=== PATIENT | female | born 1985 | race Caucasian/White ===

== ENCOUNTER 2016-08-18 19:05 | Emergency (ER) | payer BC ==
[~2016-08-18] VITALS: Ht 160 cm; Wt 67.6 kg
[~2016-08-18 19:05] MED LIST: AZIT250T PO; CYCL-375 PO; DICL75TA5 PO; FLUO10CA21 PO; NORG1TAB19 PO; ONDA4TAB7 PO; OXYC1TAB8 PO; PROGESTERONE PO
[2016-08-18 19:08] VITALS: Ht 160 cm; Wt 67.6 kg
--- OUTSIDE RECORDS SUMMARY | 2016-08-18 19:08 | XMS REPORT | Referral Summary ---
Author Author [facility] Organization [facility] Address Unknown Phone Unavailable Care Team Providers Care Investigative Research Specialist Name Role Phone Hayes Beverly Primary Care Physician [phone] Encounter VC Date(s): 07/02/15 - 07/02/15 [facility], [address] [place] [address] Discharge Diagnosis: Menorrhagia Discharge Diagnosis: Major depressive disorder, single episode Discharge Disposition: 01-Home or Self Care Attending Physician: Kika Chauhan APRN Admitting Physician: Kika Chauhan APRN Vital Signs Most recent to 1 oldest [Reference Range]: Temperature Tympanic 36.7 degC [36.6-38.1 degC] (07/02/15 3:15 PM) Peripheral Pulse 68 bpm Rate [60-100 bpm] (07/02/15 3:15 PM) Blood Pressure 104/64 mmHg [90-140/60-90 mmHg] (07/02/15 3:15 PM) Problem List Condition Effective Dates Status Health Status Informant Acute Active bronchitis(Confirmed ) Acute Active gastroenteritis(Conf irmed) Dehydration(Confirme Active d) History of Active anemia(Confirmed) Liver Active mass(Confirmed) Asthma(Confirmed) Resolved (Confirmed) 06/16/03 - 2004 Resolved (Confirmed) 06/15/09 - 2010 Resolved (Confirmed) 06/15/06 - 2007 Resolved Abdominal pain, Active RUQ(Confirmed) Abnormal abdominal Active ultrasound(Confirmed ) Allergies, Adverse Reactions, Alerts Substance Reaction Severity Status penicillin rash all over Active sulfa drugs Active sulfanilamide topical Active Medications albuterol 1.25 mg/3 mL (0.042%) inhalation solution 3 mL, NEB, QID, as needed for cough and wheezing, 0 Refill(s) Start Date: 06/13/14 Status: Ordered Crutches (DME) DME Item GABRIELLA: 6 weeks Dx: R foot sx Use as directed, See Instructions, # 1 Each, 0 Refill(s), Supply Start Date: 05/28/15 Status: Ordered Flonase sprays, Nasal, Daily, 0 Refill(s) Start Date: 10/07/14 Status: Ordered Miscellaneous DME DME Item Knee/Leg walker GABRIELLA: 6 weeks Dx: R foot sx Use as directed, See Instructions, # 1 Each, 0 Refill(s), Supply Start Date: 05/28/15 Status: Ordered ProAir HFA 90 mcg/inh inhalation aerosol 2 puffs, Inhalation, QID, as needed for wheezing, # 18 g, 11 Refill(s), Pharmacy : [facility] Start Date: 06/13/14 Status: Ordered Provera 10 mg oral tablet See Instructions, 1 TABS ORAL DAILY, FOR THE FIRST 14 DAYS OF EACH BCP PACK., # 14 Each, 1 Refill(s), Pharmacy: [facility], 1 TABS ORAL DAILY, FOR THE FIRST 14 DAYS OF EACH BCP PACK. Start Date: 07/02/15 Status: Ordered Tri-Sprintec oral tablet 1 tabs, Oral, Daily, # 28 tabs, 11 Refill(s), Pharmacy: [facility] Start Date: 11/07/14 Status: Ordered Wellbutrin SR 100 mg/12 hours oral tablet, extended release 100 mg 1 tabs, Oral, BID, take once a day for 3-7 days then inc to BID, # 60 tabs, 1 Refill(s), Pharmacy: [facility] [id number], 1 tabs Oral BID,Instr: take once a day for 3-7 days then inc to BID Start Date: 07/02/15 Status: Ordered ZyrTEC 5 mg, Oral, Daily, as needed for allergy symptoms, 0 Refill(s) Start Date: 06/13/14 Status: Ordered Results No data available for this section Immunizations Vaccine Date Refusal Reason hepatitis B pediatric vaccine 04/30/98 hepatitis B pediatric vaccine 02/06/98 hepatitis B pediatric vaccine 10/17/97 pneumococcal 23-polyvalent vaccine 06/16/04 tetanus-diphth toxoids (Td) adult/adol 10/17/97 Procedures Procedure Date Related Diagnosis Body Site Bunionectomy 2000 Surgical removal of wisdom tooth 1999 Social History Social History Type Response Smoking Status Never smoker Assessment and Plan Extracted from: Title: Office Visit Author: Kika Chauhan APRN Date: 07/02/15 Note-depression/menorragia Assessment/Plan Major depressive disorder, single episode Start Yozbafmpah149 mg twice a day. Discussed starting daily for 3-7 days. Increase to twice a day to decrease side effects. Side effects of medication reviewed. Discussed with her optimal treatment for depression as 9-12 months at the least. Discussed all stopping medications abruptly. Encourage her to continue to follow with therapist. That is a good positive step. Follow-up with Dr. Beverly in 1-2 months. Menorrhagia Restart the Provera. Encouraged her to schedule well woman exam with Dr. Beverly in the next 1-2 months. Orders: buPROPion, 100 mg 1 tabs, Oral, BID, take once a day for 3-7 days then inc to BID, # 60 tabs, 1 Refill(s), Pharmacy: [facility] [id number], 1 tabs Oral BID,Instr:take once a day for 3-7 days then inc to BID medroxyPROGESTERone, See Instructions, 1 TABS ORAL DAILY, FOR THE FIRST 14 DAYS OF EACH BCP PACK., # 14 Each, 1 Refill(s), Pharmacy: [facility] [id number], 1 TABS ORAL DAILY, FOR THE FIRST 14 DAYS OF EACH BCP PACK.
--- OUTSIDE RECORDS SUMMARY | 2016-08-18 19:08 | XMS REPORT | Referral Summary ---
Author Organization Unknown Address Unknown Phone Unavailable Care Team Providers Care Autocad Draftsman Name Role Phone Hayes Beverly Primary Care Physician [phone] Encounter VC Date(s): 07/04/14 - 07/04/14 [facility], [address] [place] [address] Discharge Diagnosis: Allergic rhinitis due to pollen Discharge Diagnosis: Asthma Discharge Disposition: Home or Self Care Attending Physician: Chapin Beverly MD Admitting Physician: Chapin Beverly MD Vital Signs Most recent to 1 oldest [Reference Range]: Temperature Tympanic 36.6 degC [36.6-38.1 degC] (07/04/14 9:44 AM) Peripheral Pulse 84 bpm Rate [60-100 bpm] (07/04/14 9:44 AM) Blood Pressure 114/70 mmHg [90-140/60-90 mmHg] (07/04/14 9:44 AM) Most recent to 1 oldest [Reference Range]: SpO2 100 % (07/04/14 9:44 AM) Problem List Condition Effective Dates Status Health Status Informant Acute Active bronchitis(Confirmed ) Acute Active gastroenteritis(Conf irmed) Asthma(Confirmed) Resolved Dehydration(Confirme Active d) Liver Active mass(Confirmed) Abdominal pain, Active RUQ(Confirmed) Abnormal abdominal Active ultrasound(Confirmed ) Allergies, Adverse Reactions, Alerts Substance Reaction Severity Status penicillin Active sulfanilamide topical Active Medications albuterol 1.25 mg/3 mL (0.042%) inhalation solution 3 mL, NEB, QID, as needed for cough and wheezing, 0 Refill(s) Start Date: 06/13/14 Status: Ordered Digna-D 24 Hour Allergy & Congestion 1 tabs, Oral, Daily, as needed for allergy symptoms, 0 Refill(s) Start Date: 06/13/14 Status: Ordered ProAir HFA 90 mcg/inh inhalation aerosol 2 puffs, Inhalation, QID, as needed for wheezing, # 18 g, 11 Refill(s), Pharmacy : [facility] [id number] Start Date: 06/13/14 Status: Ordered Symbicort 160 mcg-4.5 mcg/inh inhalation aerosol 2 puffs, Inhalation, BID, # 10.2 g, 11 Refill(s) Start Date: 06/13/14 Status: Ordered Tylenol Cold Multi-Symptom Daytime 2 tablets, Oral, q4hr, as needed for cold symptoms, 0 Refill(s) Start Date: 06/13/14 Status: Ordered Tylenol Regular Strength mg, Oral, q4hr, as needed for fever, 0 Refill(s) Start Date: 04/10/14 Status: Ordered Xopenex 1.25 mg/3 mL inhalation solution 3 mL, NEB, TID, # 72 Each, 2 Refill(s), Pharmacy: [facility] [id number], 3 mL NEB TID Start Date: 06/13/14 Status: Ordered ZyrTEC 5 mg, Oral, Daily, as needed for allergy symptoms, 0 Refill(s) Start Date: 06/13/14 Status: Ordered Results No data available for this section Immunizations No data available for this section Procedures No data available for this section Social History Social History Type Response Smoking Status Never smoker Assessment and Plan Extracted from: Title: Ambulatory Patient Education Author: Chapin Beverly MD Date: 07/04 Allergy Allergic Rhinitis Allergic rhinitis is when the mucous membranes in the nose respond to allergens. Allergens are particles in the air that cause your body to have an allergic reaction. This causes you to release allergic antibodies. Through a chain of events, these eventually cause you to release histamine into the blood stream. Although meant to protect the body, it is this release of histamine that causes your discomfort, such as frequent sneezing, congestion, and an itchy , runny nose. CAUSES Seasonal allergic rhinitis (hay fever ) is caused by pollen allergens that may come from grasses, trees, and weeds. Year-round allergic rhinitis (perennial allergic rhinitis ) is caused by allergens such as house dust mites, pet dander , and mold spores. SYMPTOMS Nasal stuffiness (congestion ). Itchy, runny nose with sneezing and tearing of the eyes. DIAGNOSIS Your health care provider can help you determine the allergen or allergens that trigger your symptoms. If you and your health care provider are unable to determine the allergen, skin or blood testing may be used. TREATMENT Allergic Rhinitis does not have a cure, but it can be controlled by: Medicines and allergy shots (immunotherapy ). Avoiding the allergen. Hay fever may often be treated with antihistamines in pill or nasal spray forms. Antihistamines block the effects of histamine. There are over-the- counter medicines that may help with nasal congestion and swelling around the eyes. Check with your health care provider before taking or giving this medicine. If avoiding the allergen or the medicine prescribed do not work, there are many new medicines your health care provider can prescribe. Stronger medicine may be used if initial measures are ineffective. Desensitizing injections can be used if medicine and avoidance does not work. Desensitization is when a patient is given ongoing shots until the body becomes less sensitive to the allergen. Make sure you follow up with your health care provider if problems continue. HOME CARE INSTRUCTIONS It is not possible to completely avoid allergens, but you can reduce your symptoms by taking steps to limit your exposure to them. It helps to know exactly what you are allergic to so that you can avoid your specific triggers. SEEK MEDICAL CARE IF: You have a fever. You develop a cough that does not stop easily (persistent ). You have shortness of breath. You start wheezing. Symptoms interfere with normal daily activities. Document Released: 12/01/2001 Document Revised: 12/27/2013 Document Reviewed: [facility] Patient Information 2014 [facility], [facility]. [facility] Medicine Asthma, Adult Asthma is a recurring condition in which the airways tighten and narrow. Asthma can make it difficult to breathe. It can cause coughing, wheezing, and shortness of breath. Asthma episodes (also called asthma attacks) range from minor to life-threatening. Asthma cannot be cured, but medicines and lifestyle changes can help control it. CAUSES Asthma is believed to be caused by inherited (genetic ) and environmental factors, but its exact cause is unknown. Asthma may be triggered by allergens, lung infections, or irritants in the air. Asthma triggers are different for each person. Common triggers include: Animal dander. Dust mites. Cockroaches. Pollen from trees or grass. Mold. Smoke. Air pollutants such as dust, household adapted physical education specialist, hair sprays, aerosol sprays, paint fumes, strong chemicals, or strong odors. Cold air, weather changes, and winds (which increase molds and pollens in the air). Strong emotional expressions such as crying or laughing hard. Stress. Certain medicines (such as aspirin) or types of drugs (such as beta- blockers). Sulfites in foods and drinks. Foods and drinks that may contain sulfites include dried fruit, potato chips, and sparkling grape juice. Infections or inflammatory conditions such as the flu, a cold, or an inflammation of the nasal membranes (rhinitis ). Gastroesophageal reflux disease (GERD). Exercise or strenuous activity. SYMPTOMS Symptoms may occur immediately after asthma is triggered or many hours later. Symptoms include: Wheezing. Excessive nighttime or manager laundry coughing. Frequent or severe coughing with a common cold. Chest tightness. Shortness of breath. DIAGNOSIS The diagnosis of asthma is made by a review of your medical history and a physical exam. Tests may also be performed. These may include: Lung function studies. These tests show how much air you breath in and out. Allergy tests. Imaging tests such as X-rays. TREATMENT Asthma cannot be cured, but it can usually be controlled. Treatment involves identifying and avoiding your asthma triggers. It also involves medicines. There are 2 classes of medicine used for asthma treatment: Controller medicines. These prevent asthma symptoms from occurring. They are usually taken every day. Reliever or rescue medicines. These quickly relieve asthma symptoms. They are used as needed and provide short-term relief. Your health care provider will help you create an asthma action plan. An asthma action plan is a written plan for managing and treating your asthma attacks. It includes a list of your asthma triggers and how they may be avoided. It also includes information on when medicines should be taken and when their dosage should be changed. An action plan may also involve the use of a device called a peak flow meter. A peak flow meter measures how well the lungs are working. It helps you monitor your condition. HOME CARE INSTRUCTIONS Take medicine as directed by your health care provider. Speak with your health care provider if you have questions about how or when to take the medicines. Use a peak flow meter as directed by your health care provider. Record and keep track of readings. Understand and use the action plan to help minimize or stop an asthma attack without needing to seek medical care. Control your home environment in the following ways to help prevent asthma attacks: Do not smoke. Avoid being exposed to secondhand smoke. Change your heating and air conditioning filter regularly. Limit your use of fireplaces and wood stoves. Get rid of pests (such as roaches and mice) and their droppings. Throw away plants if you see mold on them. Clean your floors and dust regularly. Use unscented cleaning products. Try to have someone else vacuum for you regularly. Stay out of rooms while they are being vacuumed and for a short while afterward. If you vacuum, use a dust mask from a hardware store, a double-layered or microfilter vacuum cleaner and presser bag, or a vacuum cleaner and presser with a HEPA filter. Replace carpet with wood, tile, or vinyl bill. Carpet can trap dander and dust. Use allergy-proof pillows, mattress covers, and box spring covers. Wash bed sheets and blankets every week in hot water and dry them in a dryer. Use blankets that are made of polyester or cotton. Clean bathrooms and soha with bleach. If possible, have someone repaint the wellington in these rooms with mold-resistant paint. Keep out of the rooms that are being cleaned and painted. Wash hands frequently. SEEK MEDICAL CARE IF: You have wheezing, shortness of breath, or a cough even if taking medicine to prevent attacks. The colored mucus you cough up (sputum ) is thicker than usual. Your sputum changes from clear or white to yellow, green, nieto, or bloody. You have any problems that may be related to the medicines you are taking ( such as a rash, itching, swelling, or trouble breathing). You are using a reliever medicine more than 23 times per week. Your peak flow is still at 5079% of you personal best after following your action plan for 1 hour. SEEK IMMEDIATE MEDICAL CARE IF: You seem to be getting worse and are unresponsive to treatment during an asthma attack. You are short of breath even at rest. You get short of breath when doing very little physical activity. You have difficulty eating, drinking, or talking due to asthma symptoms. You develop chest pain. You develop a fast heartbeat. You have a bluish color to your lips or fingernails. You are lightheaded, dizzy, or faint. Your peak flow is less than 50% of your personal best. You have a fever or persistent symptoms for more than 23 days. You have a fever and symptoms suddenly get worse. MAKE SURE YOU: Understand these instructions. Will watch your condition. Will get help right away if you are not doing well or get worse. Document Released: 03/08/2006 Document Revised: 11/08/2013 Document Reviewed: [employer] Patient Information 2014 [employer] [facility]. No follow up information was provided. Extracted from: Title: asthma Author: Chapin Beverly MD Date: 07/04/14 Impression and Plan Diagnosis Allergic rhinitis due to pollen (ICD9 477.0, Discharge, Medical). Asthma (ICD9 493.90, Discharge, Medical). Plan: Continue your current meds. Do peak flows daily. See [facility] for your physical this summer. Followup with me as needed. . Orders Orders (Selected) Outpatient Orders Ordered Office Visit Level 3 Est 19936: . Dx/Order Association Plan: Diagnosis: Allergic rhinitis due to pollen Comment: Ordered: Office Visit Level 3 Est 00219; 07/04/14 10:07:00 CDT, Asthma | Allergic rhinitis due to pollen Diagnosis: Asthma Comment: Ordered: Office Visit Level 3 Est 05158; 07/04/14 10:07:00 CDT, Asthma | Allergic rhinitis due to pollen End of Orders ."
--- OUTSIDE RECORDS SUMMARY | 2016-08-18 19:08 | XMS REPORT | Referral Summary ---
Author Author [facility] Organization [facility] Address Unknown Phone Unavailable Care Team Providers Care Banana Room Cutter Name Role Phone Hayes Beverly Primary Care Physician [phone] Encounter VC Date(s): 10/22/15 - 10/22/15 [facility] [address] [place] [address] [facility] Discharge Diagnosis: Vaginal discharge Discharge Diagnosis: Genital herpes Discharge Diagnosis: Possible exposure to STD Discharge Disposition: 01-Home or Self Care Attending Physician: Sarah Martin Attending Physician: Provider, Immediate Care Admitting Physician: Provider, Immediate Care Vital Signs Most recent to 1 oldest [Reference Range]: Temperature Oral 36.6 degC [35.8-37.3 degC] (10/22/15 7:39 AM) Peripheral Pulse 63 bpm Rate [60-100 bpm] (10/22/15 7:39 AM) Blood Pressure 114/65 mmHg [90-140/60-90 mmHg] (10/22/15 7:39 AM) SpO2 100 % (10/22/15 7:39 AM) Problem List Condition Effective Dates Status Health Status Informant Acute Resolved bronchitis(Confirmed ) Acute Resolved gastroenteritis(Conf irmed) Dehydration(Confirme Resolved d) History of Active anemia(Confirmed) Liver Active [...] 0 Refill(s) Start Date: 06/13/14 Status: Ordered azithromycin 500 mg oral tablet 1,000 mg 2 tabs, Oral, Daily, # 2 tabs, 0 Refill(s), Pharmacy: [id number], 2 tabs Oral Daily Start Date: 10/22/15 Stop Date: 10/24/15 Status: Ordered Flonase sprays, Nasal, Daily, 0 Refill(s) Start Date: 10/07/14 Status: Ordered naproxen 500 mg oral tablet 500 mg 1 tabs, Oral, BID, # 60 tabs, 0 Refill(s), Pharmacy: [id number], 1 tabs Oral BID Start Date: 08/09/15 Status: Ordered ProAir HFA 90 mcg/inh inhalation aerosol 2 puffs, Inhalation, QID, as needed for wheezing, # 18 g, 11 Refill(s), Pharmacy : [id number] Start Date: 06/13/14 Status: Ordered Provera 10 mg oral tablet See Instructions, 1 TABS ORAL DAILY, FOR THE FIRST 14 DAYS OF EACH BCP PACK., # 14 Each, 1 Refill(s), Pharmacy: [id number], 1 TABS ORAL DAILY, FOR THE FIRST 14 DAYS OF EACH BCP PACK. Start Date: 07/02/15 Status: Ordered Tri-Sprintec oral tablet 1 tabs, Oral, Daily, # 28 tabs, 11 Refill(s), Pharmacy: [id number] Start Date: 11/07/14 Status: Ordered Valtrex 1 g oral tablet 1 g 1 tabs, Oral, q24hr, X 5 days, # 5 tabs, 0 Refill(s), Pharmacy: [id number], 1 tabs Oral q24hr,x5 days Start Date: 10/22/15 Stop Date: 10/27/15 Status: Ordered Wellbutrin SR 100 mg/12 hours oral tablet, extended release 100 mg 1 tabs, Oral, BID, # 60 tabs, 1 Refill(s), Pharmacy: [id number], 1 tabs Oral BID,Instr:take once a day for 3-7 days then inc to BID Start Date: 07/02/15 Status: Ordered ZyrTEC 5 mg, Oral, Daily, as needed for allergy symptoms, 0 Refill(s) Start Date: 06/13/14 Status: Ordered Results Microbiology Reports TEST: Herpes Simplex Culture STATUS: Order in Progress BODY SITE: SOURCE: Vaginal COLLECTED DATE/TIME: 10/22/15 8:14 AM Herpes Simplex Culture Culture in progress Immunizations Vaccine Date Refusal Reason hepatitis B pediatric vaccine 04/30/98 hepatitis B pediatric vaccine 02/06/98 hepatitis B pediatric vaccine 10/17/97 pneumococcal 23-polyvalent vaccine 06/16/04 tetanus-diphth toxoids (Td) adult/adol 10/17/97 Procedures Procedure Date Related Diagnosis Body Site Correction, hallux valgus (bunion), with or 07/11/15 without sesamoidectomy; by double osteotomy1 Bunionectomy 2000 Surgical removal of wisdom tooth 1999 Bunionectomy 1DOS 07/11/15 GP 90 days 10/10/15 R foot Social History Social History Type Response Smoking Status Never smoker Assessment and Plan Extracted from: Title: Office Visit Note Author: Sarah Martin Date: 10/22/15 Assessment/Plan Genital herpes She doesn't appear to have a recurrent herpes outbreak. She wants to try the Valtrex. I wrote her for Valtrex. Ordered: Office Visit Level 3 Est 15910 Possible exposure to STD We tested for STDs. I explained that she could wait until results or be treated now. She elected for treatment now. Proceeded with Rocephin 250 mg IMand a prescription for azithromycin. Ordered: Office Visit Level 3 Est 54352 Vaginal discharge She will receive notification if her testing is positive. Her hanging drop was negative for yeast and clue cells and Trichomonas. Instructed patient if symptoms worsen or new symptoms arise to seek medical attention here or at the ER. Instructed patient if symptoms do not improve follow up with PCP in 2-3 days. Patient voiced understanding and agreed with treatment plan. Patient dismissed in stable condition. Ordered: Chlamydia/GC Nucleic Acid Screen Genital Culture Herpes Simplex Culture Office Visit Level 3 Est 28163 Orders: azithromycin, 1,000 mg 2 tabs, Oral, Daily, # 2 tabs, 0 Refill(s), Pharmacy: [id number], 2 tabs Oral Daily valACYclovir, 1 g 1 tabs, Oral, q24hr, X 5 days, # 5 tabs, 0 Refill(s), Pharmacy: [facility] [id number], 1 tabs Oral q24hr,x5 days
--- OUTSIDE RECORDS SUMMARY | 2016-08-18 19:08 | XMS REPORT | Continuity of Care Document ---
Author Author [facility] Organization [facility] Address Unknown Phone Unavailable Support Name Relationship Address Phone DIONNE HERMAN MD Caregiver [address] [address] Unavailable ALIVIA MURCIA MD Caregiver [address] [place] [address] Unavailable ANGIE MCKEON Next Of Kin [address] [place], [place] [id number] Insurance Providers Guarantor Aly Palacio Address [address] [place] [address] Email DENIED/NO TO [facility] [employer] Other Policy Number [id number] Subscriber's Name Survey Research ManagerAly allen Mary Kate Relationship 18 Self Group Number [id number] Effective Date 15 Chief Complaint and Reason for Visit Chief Complaint Fever Reason for Visit [id number] Problems Active Problems Medical Problem Onset Date Status Atypical chest pain Unknown Acute Gastroenteritis Unknown Acute Muscle spasms of head or neck Unknown Acute Past Problems Medical Problem Onset Date Strep pharyngitis Unknown Medications Current Home Medications Medication Dose Units Route Directions Days Qty Instructions Start Date Azithromycin (Zithromax) 250 Mg Tablet 1 Tab Oral Daily 4 Tablet TAKE TWO ON DAY ONE, THEN ONE TAB DAILY UNTIL ALL TAKEN. 08/13/15 Cyclobenzaprine Hcl 10 Mg Tablet 10 Mg Oral Three Times A Day as needed for Muscle Spasm 40 Tablet 03/24/15 Diclofenac Sodium 75 Mg Tablet.dr 75 Mg Oral Twice Daily With Meals 20 Tablet 03/24/15 Fluoxetine Hcl (Prozac) 10 Mg Capsule 10 Mg Oral Daily 03/24/15 Norgestimate-Ethinyl Estradiol (Trinessa Tablet) 1 Each Tablet 1 Tab Oral Daily 03/24/15 Ondansetron (Zofran Odt) 4 Mg Tab.rapdis 4 Mg Oral Q6h/0300,0900,1500,2100 10 Tablet Oral disintegrating tablet 08/13/15 Oxycodone Hcl/Acetaminophen (Percocet 5-325 Mg Tablet) 1 Each Tablet 1-2 Tab Oral Four Times Daily for Pain 30 Tablet Take 1 tablet, by mouth, 4 times a day. 08/13/15 Progesterone 10 Mg Oral Daily 03/24/15 Social History Social History Problem Response Recorded Date/Time Onset Date Status Chewing Tobacco Status No 02/18/2013 5:32pm Not Applicable Not Applicable Hx Substance Use No 08/13/2015 10:15pm Not Applicable Not Applicable Hx Alcohol Use Y SOCIALLY 08/13/2015 10:15pm Not Applicable Not Applicable Tobacco Usage none 03/24/2015 3:01am Not Applicable Not Applicable Query Response Start Date Stop Date Smoking Status Never smoker Hospital Discharge Instructions No hospital discharge instructions. Plan of Care Discharge Date 08/13/15 11:50pm Disposition 01 DISCHARGED HOME, SELF-CARE Condition at Discharge Improved Instructions/Education Provided DI for Strep Throat Prescriptions See Medication Section Referrals ALIVIA MURCIA MD Address: [address] [place] [address] [place] [phone] Care Plan and Goals Physician Care Plan Problem: Strep Pharyngitis Goal: Follow up with primary care provider Instructions: Take medications and follow care plan as discussed/written Keep wound dressing in place until tomorrow night. Wash wound daily with mild soap and water, and daily dress with a light coat of vasoline and a dry gauze bandage until healed. Have stitches removed in 5-7 days. Functional Status No functional status results. Allergies, Adverse Reactions, Alerts Allergen Type Severity Reaction Status Last Updated Penicillin Allergy Mild RASH Active 03/24/15 Sulfa (Sulfonamide Antibiotics) Adverse Reaction Mild Active 03/24/15 Immunizations Query Response on File Recorded Date/Time Hx Influenza Vaccination Y 2014 08/13/15 7:33pm Hx Pneumococcal Vaccination Y 201108/13/15 7:33pm Hx Influenza Vaccination Y 2014 08/13/15 7:33pm Influenza Vaccine Hx 201408/13/15 10:15pm Tetanus Diptheria Vaccine History 201008/13/15 10:15pm Vital Signs Acute Vital Signs Vital Response Date/Time Temperature (Fahrenheit) 99.8 deg F (96.8 - 99.1) 08/13/2015 11:50pm Temperature (Calculated Celsius) 37.22515 degrees C (36.0 - 37.3) 08/13/2015 11:50pm Pulse Rate (adult) 97 bpm (60 - 100) 08/13/2015 11:50pm Respiratory Rate 16 breaths/min (10 - 20) 08/13/2015 11:50pm O2 Sat by Pulse Oximetry 94 % (90 - 100) 08/13/2015 11:50pm Oxygen Delivery Method Room Air 08/13/2015 7:32pm Blood Pressure 95/52 mm Hg 08/13/2015 11:50pm Blood Pressure Source Automatic Cuff 08/13/2015 7:32pm Height (Feet) 0 feet 08/13/2015 10:15pm Height (Inches) 64.00 inches 08/13/2015 10:15pm Weight (Kilograms) 63.000 kg 08/13/2015 10:15pm Body Mass Index (BMI) 23.0 08/13/2015 10:15pm Results No known relevant diagnostic tests, laboratory data and/or discharge summary. Procedures No known history of procedures. Encounters Encounter Location Arrival/Admit Date Discharge/Depart Date Attending Provider Departed Emergency Room [facility] 08/13/15 9:54pm 08/13/15 11: 50pm DIONNE HERMAN MD Registered Clinic [facility] 08/13/15 7:24pm GIBRAN ERICKSON Registered [facility] 08/13/15 6:22pm GIBRAN ERICKSON Recent Diagnosis
--- OUTSIDE RECORDS SUMMARY | 2016-08-18 19:08 | XMS REPORT | Continuity of Care Document ---
Author Author [facility] Organization [facility] Address Unknown Phone Unavailable Support Name Relationship Address Phone DIONNE HERMAN MD Caregiver [address] [place] [address] Unavailable ALIVIA MURCIA MD Caregiver [address] [place] [address] Unavailable ANGIE MCKEON Next Of Kin [address] [place], [place] [phone] Insurance Providers Guarantor Aly Palacio Address [address] [place] [address] Email DENIED/NO TO [facility] [employer] Other Policy Number [id number] Subscriber's Name Building Architectural DesignerAly allen Mary Kate Relationship 18 Self Group Number [id number] Effective Date 15 Chief Complaint and Reason for Visit Chief Complaint Fever Reason for Visit [id number] Problems Active Problems Medical Problem Onset Date [...] Medication Section Referrals ALIVIA MURCIA MD Address: [address] [place] [address] [place] [phone] Care Plan and Goals Physician Care Plan [...] - 99.1) 08/13/2015 11:50pm Temperature (Calculated Celsius) 37.03633 degrees C (36.0 - 37.3) 08/13/2015 11:50pm [...] Discharge/Depart Date Attending Provider Departed Emergency Room [facility] 08/13/15 9:54pm 08/13/15 11: 50pm DIONNE HERMAN MD Departed Clinic [facility] 08/13/15 7:24pm 08/13/15 9:55pm GIBRAN ERICKSON Registered Clinic [facility] 08/13/15 6:22pm GIBRAN ERICKSON Recent Diagnosis
--- OUTSIDE RECORDS SUMMARY | 2016-08-18 19:08 | XMS REPORT | Referral Summary ---
Author Author [facility] Organization [facility] Address Unknown Phone Unavailable Care Team Providers Care Buffet Runner Name Role Phone Hayes Beverly Primary Care Physician [phone] Encounter VC Date(s): 03/11/15 - 03/11/15 [facility], [address] [place] [address] Discharge Disposition: 01-Home or Self Care Attending Physician: Chapin Beverly MD Admitting Physician: Chapin Beverly MD Vital Signs Most recent to 1 oldest [Reference Range]: Temperature Tympanic 36.8 degC [36.6-38.1 degC] (03/11/15 11:25 AM) Peripheral Pulse 84 bpm Rate [60-100 bpm] (03/11/15 11:25 AM) Blood Pressure 136/78 mmHg [90-140/60-90 mmHg] (03/11/15 11:25 AM) SpO2 98 % (03/11/15 11:25 AM) Problem List Condition Effective Dates Status [...] Severity Status penicillin rash all over Active sulfanilamide topical Active Medications albuterol 1.25 mg/3 mL (0.042%) inhalation solution 3 mL, NEB, QID, as needed for cough and wheezing, 0 Refill(s) Start Date: 06/13/14 Status: Ordered cephalexin 500 mg oral capsule 500 mg 1 caps, Oral, QID, X 10 days, # 40 caps, 0 Refill(s), Pharmacy: [id number], 1 caps Oral QID,x10 days Start Date: 03/11/15 Stop Date: 03/21/15 Status: Ordered Flonase sprays, Nasal, Daily, 0 Refill(s) Start Date: 10/07/14 Status: Ordered FLUoxetine 10 mg oral tablet 10 mg 1 tabs, Oral, Daily, # 30 tabs, 5 Refill(s), Pharmacy: [facility] [id number], 1 tabs Oral Daily Start Date: 03/11/15 Status: Ordered ProAir HFA 90 mcg/inh inhalation aerosol 2 puffs, Inhalation, QID, as needed for wheezing, # 18 g, 11 Refill(s), Pharmacy : [facility] [id number] Start Date: 06/13/14 Status: Ordered Provera 10 mg oral tablet See Instructions, 1 tabs Oral Daily, for the first 14 days of each BCP pack., # 14 Each, 2 Refill(s), Pharmacy: [facility] [id number], 1 tabs Oral Daily, for the first 14 days of each BCP pack. Start Date: 03/11/15 Status: Ordered Tri-Sprintec oral tablet 1 tabs, Oral, Daily, # 28 tabs, 11 Refill(s), Pharmacy: [facility] [id number] Start Date: 11/07/14 Status: Ordered ZyrTEC 5 mg, Oral, Daily, [...] smoker Assessment and Plan Extracted from: Title: Strep result Author: Janae Freedman LPN Date: 03/11/15 Called negative rapid strep result to pt. Instructed pt to continue antibiotics until the results of the culture are in. Pt verbalized understanding. Extracted from: Title: Ambulatory Patient Education Author: Chapin Beverly MD Date: Family Medicine Tonsillitis Tonsillitis is an infection of the throat that causes the tonsils to become red , tender, and swollen. Tonsils are collections of lymphoid tissue at the back of the throat. Each tonsil has crevices (crypts). Tonsils help fight nose and throat infections and keep infection from spreading to other parts of the body for the first 18 months of life. CAUSES Sudden (acute) tonsillitis is usually caused by infection with streptococcal bacteria. Long-lasting (chronic) tonsillitis occurs when the crypts of the tonsils become filled with pieces of food and bacteria, which makes it easy for the tonsils to become repeatedly infected. SYMPTOMS Symptoms of tonsillitis include: A sore throat, with possible difficulty swallowing. White patches on the tonsils. Fever. Tiredness. New episodes of snoring during sleep, when you did not snore before. Small, foul-smelling, yellowish-white pieces of material (tonsilloliths) that you occasionally cough up or spit out. The tonsilloliths can also cause you to have bad breath. DIAGNOSIS Tonsillitis can be diagnosed through a physical exam. Diagnosis can be confirmed with the results of lab tests, including a throat culture. TREATMENT The goals of tonsillitis treatment include the reduction of the severity and duration of symptoms and prevention of associated conditions. Symptoms of tonsillitis can be improved with the use of steroids to reduce the swelling. Tonsillitis caused by bacteria can be treated with antibiotic medicines. Usually , treatment with antibiotic medicines is started before the cause of the tonsillitis is known. However, if it is determined that the cause is not bacterial, antibiotic medicines will not treat the tonsillitis. If attacks of tonsillitis are severe and frequent, your health care provider may recommend surgery to remove the tonsils (tonsillectomy). HOME CARE INSTRUCTIONS Rest as much as possible and get plenty of sleep. Drink plenty of fluids. While the throat is very sore, eat soft foods or liquids, such as sherbet, soups, or instant breakfast drinks. Eat frozen ice pops. Gargle with a warm or cold liquid to help soothe the throat. Mix 1/4 teaspoon of salt and 1/4 teaspoon of baking soda in 8 oz of water. SEEK MEDICAL CARE IF: Large, tender lumps develop in your neck. A rash develops. A green, yellow-brown, or bloody substance is coughed up. You are unable to swallow liquids or food for 24 hours. You notice that only one of the tonsils is swollen. SEEK IMMEDIATE MEDICAL CARE IF: You develop any new symptoms such as vomiting, severe headache, stiff neck , chest pain, or trouble breathing or swallowing. You have severe throat pain along with drooling or voice changes. You have severe pain, unrelieved with recommended medications. You are unable to fully open the mouth. You develop redness, swelling, or severe pain anywhere in the neck. You have a fever. MAKE SURE YOU: Understand these instructions. Will watch your condition. Will get help right away if you are not doing well or get worse. Document Released: 12/16/2005 Document Revised: 07/23/2014 Document Reviewed: [facility] Patient Information 2015 [employer]. This information is not intended to replace advice given to you by your health care provider. Make sure you discuss any questions you have with your health care provider. No follow up information was provided. Extracted from: Title: tonsillitis, menorrhagia, Author: Chapin Beverly MD Date: depression Impression and Plan Diagnosis Acute tonsillitis (MAZ36-MI J03.01, Working, Medical). H/O menorrhagia (LNP12-VQ Z87.42, Working, Medical). Asthma (EUU28-VR J45.20, Working, Medical). Depression (HMX20-BH F32.9, Working, Medical). Plan: 1) Take the Cephalexin and Fluoxetine as directed. 2) Start the Provera, as directed, next week. 3) Rest at home. 4) See an ENT doctor to consider tonsillectomy, due to recurrent tonsillitis. 5) See me in one month to recheck your menorrhagia, and depression. 6) Consider switching to Depo Provera for contraception. . Orders Orders (Selected) Outpatient Orders InProcess (In Process) Group A Strep Culture: Ordered Office Visit Level 4 Est 23778: Completed Rapid Strep: Prescriptions Prescribed FLUoxetine 10 mg oral tablet: 10 mg=1 tabs, Oral, Daily, 30 tabs, 5 Refill(s) Provera 10 mg oral tablet: See Instructions, 1 tabs Oral Daily, for the first 14 days of each BCP pack., 14 Each, 2 Refill(s) cephalexin 500 mg oral capsule: 500 mg=1 caps, Oral, QID, for 10 days, 40 caps, 0 Refill(s). Dx/Order Association Plan: Diagnosis: Acute tonsillitis Comment: Ordered: Office Visit Level 4 Est 55159; 03/11/15 12:38:00 AUTOMOTIVE HARDWARE ENGINEER, Acute tonsillitis | Depression | H/O menorrhagia | Asthma Other status: Rapid Strep; Micro Specimen, Routine collect, 11:58:00 AUTOMOTIVE HARDWARE ENGINEER, Once, Stop date 03/11/15 11:58:00 AUTOMOTIVE HARDWARE ENGINEER, Nurse Collect Non-Blood , Acute tonsillitis (Completed) Diagnosis: Asthma Comment: Ordered: Office Visit Level 4 Est 43856; 03/11/15 12:38:00 AUTOMOTIVE HARDWARE ENGINEER, Acute tonsillitis | Depression | H/O menorrhagia | Asthma Diagnosis: Depression Comment: Ordered: Office Visit Level 4 Est 58731; 03/11/15 12:38:00 AUTOMOTIVE HARDWARE ENGINEER, Acute tonsillitis | Depression | H/O menorrhagia | Asthma Diagnosis: H/O menorrhagia Comment: Ordered: Office Visit Level 4 Est 71004; 03/11/15 12:38:00 AUTOMOTIVE HARDWARE ENGINEER, Acute tonsillitis | Depression | H/O menorrhagia | Asthma Additional Orders: Comment: Ordered: FLUoxetine 10 mg oral tablet,10 mg 1 tabs, Oral, Daily, # 30 tabs, 5 Refill(s), Pharmacy: [facility] [id number], 1 tabs Oral Daily Ordered: Provera 10 mg oral tablet,See Instructions, 1 tabs Oral Daily, for the first 14 days of each BCP pack., # 14 Each, 2 Refill(s), Pharmacy : [facility] [id number], 1 tabs Oral Daily, for the first 14 days of each BCP pack. Ordered: cephalexin 500 mg oral capsule,500 mg 1 caps, Oral, QID, X 10 days, # 40 caps, 0 Refill(s), Pharmacy: [facility] [id number], 1 caps Oral QID,x10 days End of Orders ."
--- OUTSIDE RECORDS SUMMARY | 2016-08-18 19:08 | XMS REPORT | Referral Summary ---
Author Author [facility] Organization [facility] Address Unknown Phone Unavailable Care Team Providers Care Third Shift Lieutenant Name Role Phone Hayes Beverly Primary Care Physician [phone] Encounter Date(s): 07/19/14 - 07/19/14 [facility], [address] [place] [address] Discharge Diagnosis: Vaginal discharge Discharge Diagnosis: Genital lesion, female Discharge Disposition: 01-Home or Self Care Attending Physician: Kika Chauhan APRN Admitting Physician: Kika Chauhan APRN Vital Signs Most recent to 1 oldest [Reference Range]: Temperature Tympanic 37 degC [36.6-38.1 degC] (07/19/14 9:00 AM) Peripheral Pulse 76 bpm Rate [60-100 bpm] (07/19/14 9:00 AM) Blood Pressure 114/70 mmHg [90-140/60-90 mmHg] (07/19/14 9:00 AM) Problem List Condition Effective Dates Status Health Status Informant Acute Active bronchitis(Confirmed ) Acute Active gastroenteritis(Conf irmed) Asthma(Confirmed) Resolved Dehydration(Confirme Active d) History of Active anemia(Confirmed) Liver Active mass(Confirmed) (Confirmed) 06/16/03 - 2004 Resolved (Confirmed) 06/15/09 - 2010 Resolved (Confirmed) 06/15/06 - 2007 Resolved Abdominal pain, Active RUQ(Confirmed) Abnormal abdominal Active ultrasound(Confirmed ) Allergies, Adverse Reactions, Alerts Substance Reaction Severity Status penicillin Active sulfanilamide topical Active Medications albuterol 1.25 mg/3 mL (0.042%) inhalation solution 3 mL, NEB, QID, as needed for cough and wheezing, 0 Refill(s) Start Date: 06/13/14 Status: Ordered Flonase sprays, Nasal, Daily, 0 Refill(s) Start Date: 10/07/14 Status: Ordered ProAir HFA 90 mcg/inh inhalation aerosol 2 puffs, Inhalation, QID, as needed for wheezing, # 18 g, 11 Refill(s), Pharmacy : [facility] [id number] Start Date: 06/13/14 Status: Ordered Symbicort 160 mcg-4.5 mcg/inh inhalation aerosol 2 puffs, Inhalation, BID, # 10.2 g, 11 Refill(s) Start Date: 06/13/14 Status: Ordered Tri-Sprintec oral tablet 1 tabs, Oral, Daily, # 28 tabs, 11 Refill(s), Pharmacy: [facility] [id number] Start Date: 11/07/14 Status: Ordered ZyrTEC 5 mg, Oral, Daily, as needed for allergy symptoms, 0 Refill(s) Start Date: 06/13/14 Status: Ordered Results Microbiology Reports TEST: Genital Culture STATUS: Auth (Verified) BODY SITE: SOURCE: Cervix/Vaginal COLLECTED DATE/TIME: 07/19/14 10:45 AM Genital Culture Normal vaginal yanni present Gardnerella vaginalis Large amount Kenna albicans Small amount ORGANISM:Gardnerella vaginalis ORGANISM:Kenna albicans Immunizations Vaccine Date Refusal Reason hepatitis B pediatric vaccine 04/30/98 hepatitis B pediatric vaccine 02/06/98 hepatitis B pediatric vaccine 10/17/97 pneumococcal 23-polyvalent vaccine 06/16/04 tetanus-diphth toxoids (Td) adult/adol 10/17/97 Procedures Procedure Date Related Diagnosis Body Site Biopsy of skin, subcutaneous tissue and/or 07/19/14 mucous membrane (including simple closure), unless otherwise listed; single lesion Bunionectomy 2000 Surgical removal of wisdom tooth 1999 Social History Social History Type Response Smoking Status Never smoker Assessment and Plan Extracted from: Title: Ambulatory Patient Education Author: Kika Chauhan MARKET REPORTER Date: 07/19/14 Family Medicine Genital Warts Genital warts are a sexually transmitted infection. They may appear as small bumps on the tissues of the genital area. CAUSES Genital warts are caused by a virus called human papillomavirus (HPV). HPV is the most common sexually transmitted disease (STD) and infection of the sex organs. This infection is spread by having unprotected sex with an infected person. It can be spread by vaginal, anal, and oral sex. Many people do not know they are infected. They may be infected for years without problems. However , even if they do not have problems, they can unknowingly pass the infection to their sexual partners. SYMPTOMS Itching and irritation in the genital area. Warts that bleed. Painful sexual intercourse. DIAGNOSIS Warts are usually recognized with the naked eye on the vagina, vulva, perineum, anus, and rectum. Certain tests can also diagnose genital warts, such as: A Pap test. A tissue sample (biopsy ) exam. Colposcopy. A magnifying tool is used to examine the vagina and cervix. The HPV cells will change color when certain solutions are used. TREATMENT Warts can be removed by: Applying certain chemicals, such as cantharidin or podophyllin. Liquid nitrogen freezing (cryotherapy ). Immunotherapy with kenna or trichophyton injections. Laser treatment. Burning with an electrified probe (electrocautery ). Interferon injections. Surgery. PREVENTION HPV vaccination can help prevent HPV infections that cause genital warts and that cause cancer of the cervix. It is recommended that the vaccination be given to people between the ages 9 to 26 years old. The vaccine might not work as well or might not work at all if you already have HPV. It should not be given to women. HOME CARE INSTRUCTIONS It is important to follow your caregiver's instructions. The warts will not go away without treatment. Repeat treatments are often needed to get rid of warts. Even after it appears that the warts are gone, the normal tissue underneath often remains infected. Do not try to treat genital warts with medicine used to treat hand warts. This type of medicine is strong and can burn the skin in the genital area, causing more damage. Tell your past and current sexual partner(s) that you have genital warts. They may be infected also and need treatment. Avoid sexual contact while being treated. Do not touch or scratch the warts. The infection may spread to other parts of your body. Women with genital warts should have a cervical cancer check (Pap test ) at least once a year. This type of cancer is slow-growing and can be cured if found early. Chances of developing cervical cancer are increased with HPV. Inform your forensic economist about your warts in the event of . This virus can be passed to the baby's respiratory tract. Discuss this with your caregiver. Use a condom during sexual intercourse. Following treatment, the use of condoms will help prevent reinfection. Ask your caregiver about using [id number] anti-itch creams. SEEK MEDICAL CARE IF: Your treated skin becomes red, swollen, or painful. You have a fever. You feel generally ill. You feel little lumps in and around your genital area. You are bleeding or have painful sexual intercourse. MAKE SURE YOU: Understand these instructions. Will watch your condition. Will get help right away if you are not doing well or get worse. Document Released: 03/05/2001 Document Revised: 05/30/2012 Document Reviewed: [employer] Patient Information 2014 [employer]. No follow up information was provided. Extracted from: Title: Office Visit Note Author: Kika Chauhan APRN Date: 07/19/14 Assessment/Plan 1.Genital lesion, female Discussed with the patient based on history and exam that my inclination is that these are genital warts. No biopsy for confirmation. We'll notify her of those results. Reviewed with patient pathophysiology and nature of genital warts. Discussed that if the sexually transmitted disease. Cannot pinpoint what time her exposure was. Due to the vaginal discharge recommend we also screen for chlamydia, gonorrhea and Trichomonas. Cultures were obtained. We'll notify her of those results. Discussed due to number and location of genital warts I think referral to ASSIST[facility] PROF[facility]OR IN FAMILY STUDIES for further evaluation and management is needed. Patient to let me know who she wants to follow-up with. Encourage use of condoms for sexual activity. Procedure: PROCEDURE: Informed consent for removal of lesion was discussed and obtained. Discussed risks included discomfort, bleeding, infection, damage to underlying structures, possible failure to obtain desired benefit or cosmetic effect, and other possible unforeseen complications. Lesion on the anterior commensurate of the labia majora is cleaned with Betadine. Anesthetized with one percent lidocaine. Less than 1 mL utilized. 30-gauge needle. Dermal blade was utilized and lesion with simply shaved off. Touched with a sliver nitrate stick. Dressing appled. Care of the resulting small wound was discussed, and patient counseled regarding infection and complications. Ordered: Biopsy Of Skin, Single Lesion 17532 Office Visit Level 3 Est 04236 2.Vaginal discharge Ordered: Office Visit Level 3 Est 13888 Addendum I reviewed this chart, the patient's medical history, and the by Rush, Resident's/MARKET REPORTER's/PA/RN's/PharmD's documented findings, and concur with the assessment and Chapin Koo plan as above. on 19 July 2014 12:57:17 CDT
--- OUTSIDE RECORDS SUMMARY | 2016-08-18 19:08 | XMS REPORT | Referral Summary ---
Author Author [facility] Organization [facility] Address Unknown Phone Unavailable Care Team Providers Care Rotating Field Assembler Name Role Phone Hayes Beverly Primary Care Physician [phone] Encounter VC Date(s): 05/25/15 - 05/25/15 [facility] [address] [place] [address] [facility] Discharge Diagnosis: Genital herpes Discharge Diagnosis: Vaginitis Discharge Disposition: 01-Home or Self Care Attending Physician: Deonna Weir PA-C Attending Physician: Provider, Immediate Care Admitting Physician: Provider, Immediate Care Vital Signs Most recent to 1 oldest [Reference Range]: Temperature Oral 37 degC [35.8-37.3 degC] (05/25/15 12:57 PM) Peripheral Pulse 77 bpm Rate [60-100 bpm] (05/25/15 12:57 PM) Blood Pressure 130/79 mmHg [90-140/60-90 mmHg] (05/25/15 12:57 PM) SpO2 99 % (05/25/15 12:57 PM) Problem List Condition Effective Dates Status [...] sulfa drugs Active sulfanilamide topical Active Medications acyclovir 800 mg oral tablet 800 mg 1 tabs, Oral, 5x/Day, X 7 days, # 35 tabs, 0 Refill(s), Pharmacy: [id number], 1 tabs Oral 5x/Day,x7 days Start Date: 05/25/15 Stop Date: 06/01/15 Status: Ordered albuterol 1.25 mg/3 mL (0.042%) inhalation solution 3 mL, NEB, QID, as needed for cough and wheezing, 0 Refill(s) Start Date: 06/13/14 Status: Ordered Flonase sprays, Nasal, Daily, 0 Refill(s) Start Date: 10/07/14 Status: Ordered FLUoxetine 10 mg oral tablet 10 mg 1 tabs, Oral, Daily, # 30 tabs, 5 Refill(s), Pharmacy: [id number], 1 tabs Oral Daily Start Date: 03/11/15 Status: Ordered ProAir HFA 90 mcg/inh inhalation aerosol 2 puffs, Inhalation, QID, as needed for wheezing, # 18 g, 11 Refill(s), Pharmacy : [id number] Start Date: 06/13/14 Status: Ordered Provera 10 mg oral tablet See Instructions, 1 TABS ORAL DAILY, FOR THE FIRST 14 DAYS OF EACH BCP PACK., # 14 unknown unit, eRx: [facility] [id number], 1 TABS ORAL DAILY, FOR THE FIRST 14 DAYS OF EACH BCP PACK. Start Date: 05/20/15 Status: Ordered Tri-Sprintec oral tablet 1 tabs, Oral, Daily, # 28 tabs, 11 Refill(s), Pharmacy: [id number] Start Date: 11/07/14 Status: Ordered ZyrTEC 5 mg, Oral, Daily, as needed for allergy symptoms, 0 Refill(s) Start Date: 06/13/14 Status: Ordered Results Chemistry Most recent to 1 oldest [Reference Range]: Hep C Ab Negative (05/25/15 1:43 PM) HIV 1 and 2 Abs Negative (05/25/15 1:43 PM) Microbiology Reports TEST: Wet Prep Exam STATUS: Auth (Verified) BODY SITE: SOURCE: Vaginal COLLECTED DATE/TIME: 05/25/15 1:43 PM Wet Prep Exam White blood cells observed (>10 per high power field) No Trichomonas, yeast or clue cells observed Immunizations Vaccine Date Refusal Reason hepatitis B pediatric vaccine 04/30/98 hepatitis B pediatric vaccine 02/06/98 hepatitis B pediatric vaccine 10/17/97 pneumococcal 23-polyvalent vaccine 06/16/04 tetanus-diphth toxoids (Td) adult/adol 10/17/97 Procedures Procedure Date Related Diagnosis Body Site Collection of venous blood by venipuncture 05/25/15 Bunionectomy 2001 Surgical removal of wisdom tooth 2000 Social History Social History Type Response Smoking Status Never smoker Assessment and Plan Extracted from: Title: Ambulatory Patient Education Author: Deonna Weir PA-C Date: Infectious Disease Genital Herpes Genital herpes is a common sexually transmitted infection (STI) that is caused by a virus. The virus is spread from person to person through sexual contact. Infection can cause itching, blisters, and sores in the genital area or rectal area. This is called an outbreak. It affects both men and women. Genital herpes is particularly concerning for women because the virus can be passed to the baby during delivery and cause serious problems. Genital herpes is also a concern for people with a weakened defense (immune) system. Symptoms of genital herpes may last several days and then go away. However, the virus remains in your body, so you may have more outbreaks of symptoms in the future. The time between outbreaks varies and can be months or years. CAUSES Genital herpes is caused by a virus called herpes simplex virus (HSV) type 2 or HSV type 1. These viruses are contagious and are most often spread through sexual contact with an infected person. Sexual contact includes vaginal, anal, and oral sex. RISK FACTORS Risk factors for genital herpes include: Being sexually active with multiple partners. Having unprotected sex. SIGNS AND SYMPTOMS Symptoms may include: Pain and itching in the genital area or rectal area. Small red bumps that turn into blisters and then turn into sores. Flu-like symptoms, including: Fever. Body aches. Painful urination. Vaginal discharge. DIAGNOSIS Genital herpes may be diagnosed by: Physical exam. Blood test. Fluid culture test from an open sore. TREATMENT There is no cure for genital herpes. Oral antiviral medicines may be used to speed up healing and to help prevent the return of symptoms. These medicines can also help to reduce the spread of the virus to sexual partners. HOME CARE INSTRUCTIONS Keep the affected areas dry and clean. Take medicines only as directed by your health care provider. Do not have sexual contact during active infections. Genital herpes is contagious. Practice safe sex. Latex condoms and female condoms may help to prevent the spread of the herpes virus. Avoid rubbing or touching the blisters and sores. If you do touch the blister or sores: Wash your hands thoroughly. Do not touch your eyes afterward. If you become , tell your health care provider if you have had genital herpes. Keep all follow-up visits as directed by your health care provider. This is important. PREVENTION Use condoms. Although anyone can contract genital herpes during sexual contact even with the use of a condom, a condom can provide some protection. Avoid having multiple sexual partners. Talk to your sexual partner about any symptoms and past history that either of you may have. Get tested before you have sex. Ask your partner to do the same. Recognize the symptoms of genital herpes. Do not have sexual contact if you notice these symptoms. SEEK MEDICAL CARE IF: Your symptoms are not improving with medicine. Your symptoms return. You have new symptoms. You have a fever. You have abdominal pain. You have redness, swelling, or pain in your eye. MAKE SURE YOU: Understand these instructions. Will watch your condition. Will get help right away if you are not doing well or get worse. This information is not intended to replace advice given to you by your health care provider. Make sure you discuss any questions you have with your health care provider. Document Released: 03/05/2001 Document Revised: 12/25/2014 Document Reviewed: [facility] Patient Information 2015 [facility]. Obstetrics and Gynecology Sexually Transmitted Disease A sexually transmitted disease (STD) is a disease or infection that may be passed (transmitted) from person to person, usually during sexual activity. This may happen by way of saliva, semen, blood, vaginal mucus, or urine. Common STDs include: Gonorrhea. Chlamydia. Syphilis. HIV and AIDS. Genital herpes. Hepatitis B and C. Trichomonas. Human papillomavirus (HPV). Pubic lice. Scabies. Mites. Bacterial vaginosis. WHAT ARE CAUSES OF STDs? An STD may be caused by bacteria, a virus, or parasites. STDs are often transmitted during sexual activity if one person is infected. However, they may also be transmitted through nonsexual means. STDs may be transmitted after: Sexual intercourse with an infected person. Sharing sex toys with an infected person. Sharing needles with an infected person or using unclean piercing or tattoo needles. Having intimate contact with the genitals, mouth, or rectal areas of an infected person. Exposure to infected fluids during . WHAT ARE THE SIGNS AND SYMPTOMS OF STDs? Different STDs have different symptoms. Some people may not have any symptoms. If symptoms are present, they may include: Painful or bloody urination. Pain in the pelvis, abdomen, vagina, anus, throat, or eyes. A skin rash, itching, or irritation. Growths, ulcerations, blisters, or sores in the genital and anal areas. Abnormal vaginal discharge with or without bad odor. Penile discharge in men. Fever. Pain or bleeding during sexual intercourse. Swollen glands in the groin area. Yellow skin and eyes (jaundice). This is seen with hepatitis. Swollen testicles. Infertility. Sores and blisters in the mouth. HOW ARE STDs DIAGNOSED? To make a diagnosis, your health care provider may: Take a medical history. Perform a physical exam. Take a sample of any discharge to examine. Swab the throat, cervix, opening to the penis, rectum, or vagina for testing. Test a sample of your first morning urine. Perform blood tests. Perform a Pap test, if this applies. Perform a colposcopy. Perform a laparoscopy. HOW ARE STDs TREATED? Treatment depends on the STD. Some STDs may be treated but not cured. Chlamydia, gonorrhea, trichomonas, and syphilis can be cured with antibiotic medicine. Genital herpes, hepatitis, and HIV can be treated, but not cured, with prescribed medicines. The medicines lessen symptoms. Genital warts from HPV can be treated with medicine or by freezing, burning (electrocautery), or surgery. Warts may come back. HPV cannot be cured with medicine or surgery. However, abnormal areas may be removed from the cervix, vagina, or vulva. If your diagnosis is confirmed, your recent sexual partners need treatment. This is true even if they are symptom-free or have a negative culture or evaluation. They should not have sex until their health care providers say it is okay. Your health care provider may test you for infection again 3 months after treatment. HOW CAN I REDUCE MY RISK OF GETTING AN STD? Take these steps to reduce your risk of getting an STD: Use latex condoms, dental dams, and water-soluble lubricants during sexual activity. Do not use petroleum jelly or oils. Avoid having multiple sex partners. Do not have sex with someone who has other sex partners Do not have sex with anyone you do not know or who is at high risk for an STD. Avoid risky sex practices that can break your skin. Do not have sex if you have open sores on your mouth or skin. Avoid drinking too much alcohol or taking illegal drugs. Alcohol and drugs can affect your judgment and put you in a vulnerable position. Avoid engaging in oral and anal sex acts. Get vaccinated for HPV and hepatitis. If you have not received these vaccines in the past, talk to your health care provider about whether one or both might be right for you. If you are at risk of being infected with HIV, it is recommended that you take a prescription medicine daily to prevent HIV infection. This is called pre-exposure prophylaxis (PrEP). You are considered at risk if: You are a man who has sex with other men (MSM). You are a heterosexual man or woman and are sexually active with more than one partner. You take drugs by injection. You are sexually active with a partner who has HIV. Talk with your health care provider about whether you are at high risk of being infected with HIV. If you choose to begin PrEP, you should first be tested for HIV. You should then be tested every 3 months for as long as you are taking PrEP. WHAT SHOULD I DO IF I THINK I HAVE AN STD? See your health care provider. Tell your sexual partner(s). They should be tested and treated for any STDs. Do not have sex until your health care provider says it is okay. WHEN SHOULD I GET IMMEDIATE MEDICAL CARE? Contact your health care provider right away if: You have severe abdominal pain. You are a man and notice swelling or pain in your testicles. You are a woman and notice swelling or pain in your vagina. This information is not intended to replace advice given to you by your health care provider. Make sure you discuss any questions you have with your health care provider. Document Released: 05/29/2003 Document Revised: 12/25/2014 Document Reviewed: [employer] Patient Information 2015 [email or web address]. No follow up information was provided. Extracted from: Title: Office Visit Note Author: Deonna Weir PA-C Date: 05/25/15 Assessment/Plan Genital herpes Patient declined herpes swab due to clinical exam. Acyclovir 800mg 5x/day x 1 week. Education given. Avoid intercourse while symptoms. Ordered: Chlamydia/GC Nucleic Acid Screen Office Visit Level 3 Est 91480 Vaginitis Rocephin 250mg IM and azithromycin 1 gm x 1. Gonorrhea and Chlamydia cultures obtained. Recommend safe sexual practices. Repeat HIV/ syphilisin 6 months. Will notify of lab results. Questions were answered. Patient verbalized understanding. Patient left in stable condition. Ordered: Office Visit Level 3 Est 84937 Orders: acyclovir, 800 mg 1 tabs, Oral, 5x/Day, X 7 days, # 35 tabs, 0 Refill( s), Pharmacy: [id number], 1 tabs Oral 5x/Day,x7 days
--- OUTSIDE RECORDS SUMMARY | 2016-08-18 19:08 | XMS REPORT | Referral Summary ---
Author Author [facility] Organization [facility] Address Unknown Phone Unavailable Care Team Providers Care Deputy Sheriff Custody Name Role Phone Hayes Beverly Primary Care Physician [phone] Encounter VC Date(s): 07/22/15 - 07/22/15 [facility] [address] [place] [address]- Discharge Diagnosis: Status post right foot surgery Discharge Disposition: 01-Home or Self Care Attending Physician: Segundo Tovar DPM Admitting Physician: Segundo Tovar DPM Vital Signs No data available for this section Problem List Condition Effective Dates Status Health [...] 0 Refill(s) Start Date: 06/13/14 Status: Ordered clindamycin 300 mg oral capsule 300 mg 1 caps, Oral, q8hr, # 30 caps, 0 Refill(s), Pharmacy: [facility] [id number], 1 caps Oral q8hr Start Date: 07/22/15 Status: Ordered Crutches (DME) DME Item GABRIELLA: [...] Refill(s), Supply Start Date: 05/28/15 Status: Ordered [place] 7.5 mg-325 mg oral tablet 1 tabs, Oral, q6hr, as needed for pain, # 50 tabs, 0 Refill(s) Start Date: 07/22/15 Status: Ordered ProAir HFA 90 mcg/inh inhalation aerosol 2 puffs, Inhalation, QID, as needed for wheezing, # 18 g, 11 Refill(s), Pharmacy : [facility] [id number] Start Date: 06/13/14 Status: Ordered Provera 10 mg oral tablet See Instructions, 1 TABS ORAL DAILY, FOR THE FIRST 14 DAYS OF EACH BCP PACK., # 14 Each, 1 Refill(s), Pharmacy: [facility] [id number], 1 TABS ORAL DAILY, FOR THE FIRST 14 DAYS OF EACH BCP PACK. Start Date: 07/02/15 Status: Ordered Tri-Sprintec oral tablet 1 tabs, Oral, Daily, # 28 tabs, 11 Refill(s), Pharmacy: [facility] [id number] Start Date: 11/07/14 Status: Ordered Wellbutrin SR 100 mg/12 hours oral tablet, extended release 100 mg 1 tabs, Oral, BID, take once a day for 3-7 days then inc to BID, # 60 tabs, 1 Refill(s), Pharmacy: [facility] [id number], 1 tabs Oral BID,Instr: take once a day for 3-7 days then inc to BID Start Date: 07/02/15 Status: Ordered Zofran ODT 4 mg oral tablet, disintegrating 4 mg 1 tabs, Oral, q8hr, as needed for nausea/vomiting, # 30 tabs, 0 Refill(s), Pharmacy: [facility] [id number], 1 tabs Oral q8hr,PRN:as needed for nausea/ vomiting Start Date: 07/11/15 Status: Ordered ZyrTEC 5 mg, Oral, Daily, [...] 2000 Surgical removal of wisdom tooth 1999 1DOS 07/11/15 GP 90 days 10/10/15 R foot Social History Social History Type Response Smoking Status Never smoker Assessment and Plan Extracted from: Title: Office Visit Note Author: Segundo Tovar DPMavis Date: 07/22/15 Assessment/Plan Status post right foot surgery Status post right foot bunionectomy date of surgery 07/11/15. Mild cellulitis noted along the incisional site and I prescribed clindamycin 300 mg 3 times daily10 days course. Sutures are removed today. Light dressing was applied to right foot. Patient may get her foot wet starting tomorrow. Maintain nonweightbearinguntilnext appointment on 08/15/2015. Refilled hydrocodone. Orders: clindamycin, 300 mg 1 caps, Oral, q8hr, # 30 caps, 0 Refill(s), Pharmacy: [id number], 1 caps Oral q8hr HYDROcodone-acetaminophen, 1 tabs, Oral, q6hr, as needed for pain, # 50 tabs, 0 Refill(s)
--- OUTSIDE RECORDS SUMMARY | 2016-08-18 19:09 | XMS REPORT | Continuity of Care Document ---
Author Author Mela Herman MA [facility] Address [address] [place] [address] [place] [address] Phone Payers Payer name Insurance type Covered libertarian ID Authorization(s) Unknown Problems Condition Effective Dates (start - stop) Clinical Status Noninfectious Gastroenteritis - *Acute Abdominal pain, right upper quadrant - *Acute Gastroenteritis - *Acute Mild dehydration - *Acute Noninfectious Gastroenteritis - *Acute Family History Family Member Diagnosis Age At Onset Status Unknown Social History Social History Element Description Quantity Unknown Allergies, Adverse Reactions, Alerts Substance Reaction Severity Status PENICILLINS Unknown SULFANILAMIDE Unknown Medications Medication Instructions Dosage Effective Dates (start - stop) Status Zofran 4 mg tablet take 1 Tablet (4MG) by oral route every 6 hours as needed - Active Percocet 7.5 mg-325 mg tablet take 1 Tablet by oral route every 4-6 hours as needed - Active Immunizations Vaccine Date Status Comments Unknown Results Test Name Date and Time Measure Units Reference Range Abnormal Flag Comments Unknown Vital Signs Date / Time: Height Weight Pulse Rate Blood Pressure Temperature /09:12:00 164.00 lbs 75 /min 116/74 mm[Hg] 98.8 F Procedures Procedure Date Unknown Encounters Encounter Location Date Patient Visit [facility] Patient Visit [facility] Advance Directives Directive Effective Date Unknown
--- OUTSIDE RECORDS SUMMARY | 2016-08-18 19:09 | XMS REPORT | Referral Summary ---
Author Author [facility] Organization [facility] Address Unknown Phone Unavailable Care Team Providers Care Avid Editor Name Role Phone Hayes Beverly Primary Care Physician [phone] Encounter Date(s): 08/13/15 - 08/13/15 [facility], [address] [place] [address] Discharge Diagnosis: Body aches Discharge Diagnosis: Fever Discharge Disposition: 01-Home or Self Care Attending Physician: Cory Munguia PA-C Admitting Physician: Cory Munguia PA-C Vital Signs Most recent to 1 oldest [Reference Range]: Temperature Tympanic 39.4 degC [36.6-38.1 degC] *HI* (08/13/15 4:52 PM) Peripheral Pulse 114 bpm Rate [60-100 bpm] *HI* (08/13/15 4:52 PM) Blood Pressure 140/90 mmHg [90-140/60-90 mmHg] (08/13/15 4:52 PM) Mean Arterial 107 mmHg Pressure, Cuff (08/13/15 4:52 PM) SpO2 99 % (08/13/15 4:52 PM) Problem List Condition Effective Dates Status [...] Refill(s), Supply Start Date: 05/28/15 Status: Ordered naproxen 500 mg oral tablet 500 mg 1 tabs, Oral, BID, # 60 tabs, 0 Refill(s), Pharmacy: [id number], 1 tabs Oral BID Start Date: 08/09/15 Status: Ordered ProAir HFA 90 mcg/inh inhalation aerosol 2 puffs, Inhalation, QID, as needed for wheezing, # 18 g, 11 Refill(s), Pharmacy : [id number] Start Date: 06/13/14 Status: Ordered Provera 10 mg oral tablet See Instructions, 1 TABS ORAL DAILY, FOR THE FIRST 14 DAYS OF EACH BCP PACK., # 14 Each, 1 Refill(s), [facility], 1 TABS ORAL DAILY, FOR THE FIRST 14 DAYS OF EACH BCP PACK. Start Date: 07/02/15 Status: Ordered Tri-Sprintec oral tablet 1 tabs, Oral, Daily, # 28 tabs, 11 Refill(s), Pharmacy: [id number] Start Date: 11/07/14 Status: Ordered Wellbutrin SR 100 mg/12 hours oral tablet, extended release 100 mg 1 tabs, Oral, BID, # 60 tabs, 1 Refill(s), Pharmacy: [id number], 1 tabs Oral BID,Instr:take once a day for 3-7 days then inc to BID Start Date: 07/02/15 Status: Ordered Zofran ODT 4 mg oral tablet, disintegrating 4 mg 1 tabs, Oral, q8hr, as needed for nausea/vomiting, # 30 tabs, 0 Refill(s), Pharmacy: [id number], 1 tabs Oral q8hr,PRN:as needed for nausea/ vomiting Start Date: 07/11/15 Status: Ordered ZyrTEC 5 mg, Oral, Daily, as needed for allergy symptoms, 0 Refill(s) Start Date: 06/13/14 Status: Ordered Results Hematology Most recent to 1 oldest [Reference Range]: WBC [5.0-10.0 7.9 10*3/uL 10*3/uL] (08/13/15 5:25 PM) RBC [3.70-5.20] 3.94 (08/13/15 5:25 PM) Hgb [12.0-16.0 10.7 gm/dL gm/dL] *LOW* (08/13/15 5:25 PM) Hct [37.0-47.0 %] 32.9 % *LOW* (08/13/15 5:25 PM) MCV [80.0-96.0 fL] 83.5 fL (08/13/15 5:25 PM) MCH [26.0-34.0 pg] 27.2 pg (08/13/15 5:25 PM) MCHC [32.0-36.0 32.5 gm/dL gm/dL] (08/13/15 5:25 PM) RDW [0.0-14.5 %] 13.9 % (08/13/15 5:25 PM) Platelet [150-400 190 10*3/uL 10*3/uL] (08/13/15 5:25 PM) MPV [8.8-14.8 fL] 11.0 fL (08/13/15 5:25 PM) Neutrophils [50-70 76 % 1 %] *HI* (08/13/15 5:25 PM) Band Man [0-6 %] 10 % *HI* (08/13/15 5:25 PM) Lymphocytes [20-40 8 % 2 %] *LOW* (08/13/15 5:25 PM) Monocytes [4-8 %] 6 % 3 (08/13/15 5:25 PM) Eosinophils [0-6 %] 0 % (08/13/15 5:25 PM) Basophils [0-2 %] 0 % (08/13/15 5:25 PM) Neutro Absolute 6.79 10*3 4 [2.50-7.00 10*3] (08/13/15 5:25 PM) Lymph Absolute 0.63 10*3 5 [1.00-4.00 10*3] *LOW* (08/13/15 5:25 PM) Barbour Absolute 0.47 10*3 6 [0.20-0.80 10*3] (08/13/15 5:25 PM) Eos Absolute 0.00 10*3 [0.00-0.60 10*3] (08/13/15 5:25 PM) Baso Absolute 0.00 7 [0.00-0.30] (08/13/15 5:25 PM) Giant Platelets Occasional *ABN* (08/13/15 5:25 PM) Hypochrom Moderate *ABN* (08/13/15 5:25 PM) Microcyte Present *ABN* (08/13/15 5:25 PM) Tear Cell Occasional *ABN* (08/13/15 5:25 PM) Ovalocytes Occasional *ABN* (08/13/15 5:25 PM) Differential Manual *ABN* (08/13/15 5:25 PM) 1Result Comment: Corrected result; previously reported as 86 on 08/13/15 at 17: 34 by [facility] 2Result Comment: Corrected result; previously reported as 9 on 08/13/15 at 17: 34 by [facility] 3Result Comment: Corrected result; previously reported as 5 on 08/13/15 at 17: 34 by [employer] 4Result Comment: Corrected result; previously reported as 6.77 on 08/13/15 at 17 :44 by [facility] 5Result Comment: Corrected result; previously reported as 0.69 on 08/13/15 at 17 :44 by [facility] 6Result Comment: Corrected result; previously reported as 0.42 on 08/13/15 at 17 :34 by [employer] 7Result Comment: Corrected result; previously reported as 0.02 on 08/13/15 at 17 :34 by [facility] Chemistry Most recent to 1 oldest [Reference Range]: Sodium Venous 136 mmol/L [136-145 mmol/L] (08/13/15 5:25 PM) Potassium Venous 3.4 mmol/L 1 [3.5-5.1 mmol/L] *LOW* (08/13/15 5:25 PM) Calcium Ionized 1.14 mmol/L Venous [1.10-1.30 (08/13/15 5:25 PM) mmol/L] Total CO2 Venous 16 mmol/L [24-29 mmol/L] *LOW* (08/13/15 5:25 PM) Glucose Venous 107 mg/dL [70-100 mg/dL] *HI* (08/13/15 5:25 PM) BUN Venous [8-26] 6 *LOW* (08/13/15 5:25 PM) Creatinine Venous 0.7 mg/dL [0.6-1.2 mg/dL] (08/13/15 5:25 PM) Venous CL [98-109 106 mmol/L mmol/L] (08/13/15 5:25 PM) 1Result Comment: This test was performed on a whole blood specimen. The presence or absence of hemolysis cannot be assessed. Hemolysis can falsely elevate potassium levels. Normals are for venous specimens only. Urinalysis Most recent to 1 oldest [Reference Range]: UA Color Lt Yellow (08/13/15 6:50 PM) UA Appear Sl Cloudy (08/13/15 6:50 PM) UA pH [5.0-8.0] 8.5 *HI* (08/13/15 6:50 PM) UA Leuk Est Pos 1+ [Negative] *ABN* (08/13/15 6:50 PM) UA Nitrite Negative [Negative] (08/13/15 6:50 PM) UA Protein Negative [Negative] (08/13/15 6:50 PM) UA Glucose Negative [Negative] (08/13/15 6:50 PM) UA Ketones Negative [Negative] (08/13/15 6:50 PM) UA Urobilinogen 0.2 mg/dL [<=1.0 mg/dL] (08/13/15 6:50 PM) UA Bili [Negative] Negative (08/13/15 6:50 PM) UA Blood [Negative] Pos 2+ *ABN* (08/13/15 6:50 PM) UA Spec Grav 1.015 [1.003-1.030] (08/13/15 6:50 PM) Type Clean Catch (08/13/15 6:50 PM) UA WBC [0-4] 0-2 (08/13/15 6:50 PM) UA RBC [0-2] 5-10 *ABN* (08/13/15 6:50 PM) Epithelial Cells 5-10 (08/13/15 6:50 PM) UA Bacteria Rare (08/13/15 6:50 PM) UA Mucous Present (08/13/15 6:50 PM) Immunizations Vaccine Date Refusal Reason hepatitis B [...] Smoking Status Never smoker Assessment and Plan No data available for this section
--- OUTSIDE RECORDS SUMMARY | 2016-08-18 19:09 | XMS REPORT | Referral Summary ---
Author Author [facility] Organization [facility] Address Unknown Phone Unavailable Care Team Providers Care Farm Field Manager Name Role Phone Hayes Beverly Primary Care Physician [phone] Encounter VC Date(s): 08/09/15 - 08/09/15 [facility] [address] [place] [address]- Discharge Diagnosis: Status post right foot surgery [...] BID, # 60 tabs, 0 Refill(s), Pharmacy: [facility] [id number], 1 tabs Oral BID Start Date: 08/09/15 Status: Ordered ProAir HFA 90 mcg/inh inhalation aerosol 2 puffs, Inhalation, QID, as needed for wheezing, # 18 g, 11 Refill(s), Pharmacy : [facility] [id number] Start Date: 06/13/14 Status: Ordered Provera 10 mg oral tablet See Instructions, 1 TABS ORAL DAILY, FOR THE FIRST 14 DAYS OF EACH BCP PACK., # 14 Each, 1 Refill(s), Pharmacy: [facility] [id number], 1 TABS ORAL DAILY, FOR THE FIRST 14 DAYS OF EACH BCP PACK. Start Date: 07/02/15 Status: Ordered Tri-Sprintec oral tablet 1 tabs, Oral, Daily, # 28 tabs, 11 Refill(s), Pharmacy: [facility] [id number] Start Date: 11/07/14 Status: Ordered Wellbutrin SR 100 mg/12 hours oral tablet, extended release 100 mg 1 tabs, Oral, BID, take once a day for 3-7 days then inc to BID, # 60 tabs, 1 Refill(s), Pharmacy: [facility] [id number], 1 tabs Oral BID,Instr: take once a day for 3-7 days then inc to BID Start Date: 07/02/15 Status: Ordered Zofran ODT 4 mg oral tablet, disintegrating 4 mg 1 tabs, Oral, q8hr, as needed for nausea/vomiting, # 30 tabs, 0 Refill(s), Pharmacy: [facility] [id number], 1 tabs Oral q8hr,PRN:as needed for nausea/ [...] Visit Note Author: Segundo Tovar DPMavis Date: 08/09/15 Assessment/Plan 1.Status post right foot surgery Date of surgery07/11/15. Prescribed naproxen 500 mg twice daily for swelling. Maintain nonweightbearinghowever patient may weight-bear in cam walker around the house only for next 2 weeks. Wear toe spacer and continue range of motion exercises. Follow-up in 2 weeks x-ray prior to next appointment right foot3 views weight bearing. Orders: naproxen, 500 mg 1 tabs, Oral, BID, # 60 tabs, 0 Refill(s), Pharmacy: [id number], 1 tabs Oral BID
--- OUTSIDE RECORDS SUMMARY | 2016-08-18 19:09 | XMS REPORT | Referral Summary ---
Author Author [facility] Organization [facility] Address Unknown Phone Unavailable Care Team Providers Care Curbstone Setter Name Role Phone Hayes Beverly Primary Care Physician [phone] Encounter Date(s): 08/13/15 - 08/13/15 [facility], [address] [place] [address] Discharge Diagnosis: Vasovagal episode Discharge Diagnosis: Anxiety and depression Discharge Diagnosis: Sore throat Discharge Disposition: 01-Home or Self Care Attending Physician: Kika Chauhan APRN Admitting Physician: Kika Chauhan APRN Vital Signs Most recent to 1 oldest [Reference Range]: Temperature Tympanic 36.8 degC [36.6-38.1 degC] (08/13/15 10:28 AM) Peripheral Pulse 76 bpm Rate [60-100 bpm] (08/13/15 10:28 AM) Respiratory Rate 14 br/min [14-20 br/min] (08/13/15 10:28 AM) Blood Pressure 104/64 mmHg [90-140/60-90 mmHg] (08/13/15 10:28 AM) Mean Arterial 77 mmHg Pressure, Cuff (08/13/15 10:28 AM) Problem List Condition Effective Dates Status [...] BID, # 60 tabs, 0 Refill(s), [id number], 1 tabs Oral BID Start Date: 08/09/15 Status: Ordered ProAir HFA 90 mcg/inh inhalation aerosol 2 puffs, Inhalation, QID, as needed for wheezing, # 18 g, 11 Refill(s), [facility]acy : [id number] Start Date: 06/13/14 Status: Ordered Provera 10 mg oral tablet See Instructions, 1 TABS ORAL DAILY, FOR THE FIRST 14 DAYS OF EACH BCP PACK., # 14 Each, 1 Refill(s), [facility]acy: [facility] [id number], 1 TABS ORAL DAILY, FOR THE FIRST 14 DAYS OF EACH BCP PACK. Start Date: 07/02/15 Status: Ordered Tri-Sprintec oral tablet 1 tabs, Oral, Daily, # 28 tabs, 11 Refill(s), [facility]acy: [facility] [id number] Start Date: 11/07/14 Status: Ordered Wellbutrin SR 100 mg/12 hours oral tablet, extended release 100 mg 1 tabs, Oral, BID, # 60 tabs, 1 Refill(s), [facility]acy: [id number], 1 tabs Oral BID,Instr:take once a day for 3-7 days then inc to BID Start Date: 07/02/15 Status: Ordered Zofran ODT 4 mg oral tablet, disintegrating 4 mg 1 tabs, Oral, q8hr, as needed for nausea/vomiting, # 30 tabs, 0 Refill(s), [facility], 1 tabs Oral q8hr,PRN:as needed for nausea/ [...] and Plan Extracted from: Title: Office Visit Note-depression Author: Kika Chauhan STEEL ANALYST Date: 08/13/15 Assessment/Plan 1.Anxiety and depression Continue Wellbutrin 100 mg twice a day. Requested she follow with the counselor as I think that can be beneficial overall. Plan follow-up in the office with Dr. Beverly in 6 months. She voices she is planning to do well woman exam with DYE HOUSE WORKER. 2.Sore throat Mild. Symptomatic care. Let us know ifworsens. 3.Vasovagal episode Enc good hydration and eating bkf. Resolved by end of visit.
--- OUTSIDE RECORDS SUMMARY | 2016-08-18 19:09 | XMS REPORT | Referral Summary ---
Author Organization Unknown Address Unknown Phone Unavailable Care Team Providers Care Carton Forming Machine Adjuster Name Role Phone Hayes Beverly Primary Care Physician [phone] Encounter VC Date(s): 07/19/14 - 07/19/14 [facility] [address] [place], [place] [address] Discharge Diagnosis: Vaginal discharge Discharge Diagnosis: Genital lesion, female Discharge Disposition: Home or Self Care Attending Physician: Kika Chauhan [...] # 18 g, 11 Refill(s), Pharmacy : [facility] Start Date: 06/13/14 Status: Ordered Symbicort 160 mcg-4.5 mcg/inh inhalation aerosol 2 puffs, Inhalation, BID, # 10.2 g, 11 Refill(s) Start Date: 06/13/14 Status: Ordered Xopenex 1.25 mg/3 mL inhalation solution 3 mL, NEB, TID, # 72 Each, 2 Refill(s), Pharmacy: [facility] [id number], 3 mL NEB TID Start Date: 06/13/14 Status: Ordered ZyrTEC 5 mg, Oral, Daily, as needed for allergy symptoms, 0 Refill(s) Start Date: 06/13/14 Status: Ordered Results No data available for this section Immunizations No data available for this section Procedures Procedure Date Related Diagnosis Body Site Biopsy of skin, subcutaneous tissue and/or 07/19/14 mucous membrane (including simple closure), unless otherwise listed; single lesion Social History Social History Type Response Smoking Status Never smoker Assessment and Plan Extracted from: Title: Ambulatory Patient Education Author: Kika Chauhan APRN Date: 07/19/14 Family Medicine Genital Warts Genital [...] cancer are increased with HPV. Inform your blender / cook about your warts in the event of . This virus can be passed to the baby's respiratory tract. Discuss this with your caregiver. Use a condom during sexual intercourse. Following treatment, the use of condoms will help prevent reinfection. Ask your caregiver about using [id number] anti-itch creams. SEEK MEDICAL CARE IF: Your [...] 05/30/2012 Document Reviewed: ExitCare Patient Information 2014 [facility]. No follow up information was provided. [...] of genital warts I think referral to [facility] for further evaluation and management is needed. [...] complications. Ordered: Biopsy Of Skin, Single Lesion 59336 Office Visit Level 3 Est 40075 2.Vaginal discharge Ordered: Office Visit Level 3 Est 85758 Addendum I reviewed this chart, the patient's medical history, and the by Rush, Resident's/SENIOR ACCOUNT DIRECTOR's/PA/RN's/PharmD's documented findings, and concur with the assessment and Chapin Koo plan as above. on 19 July 2014 12:57:17 CDT
--- OUTSIDE RECORDS SUMMARY | 2016-08-18 19:09 | XMS REPORT | Continuity of Care Document ---
Author Author Jovita Gaona [facility] Address Unknown Phone Unavailable Payers Payer name Insurance type Covered libertarian ID Authorization(s) Unknown Problems Condition Effective Dates (start - stop) Clinical Status Abdominal pain, right upper quadrant - *Acute Gastroenteritis - *Acute Mild dehydration - *Acute Noninfectious Gastroenteritis - *Acute Noninfectious Gastroenteritis - *Acute Family History Family Member Diagnosis Age At Onset Status Unknown Social History Social History Element Description Quantity Unknown Allergies, Adverse Reactions, Alerts Substance Reaction Severity Status PENICILLINS Unknown SULFANILAMIDE Unknown Medications Medication Instructions Dosage Effective Dates (start - stop) Status Percocet 7.5 mg-325 mg tablet take 1 Tablet by oral route every 4-6 hours as needed - Active Zofran 4 mg tablet take 1 Tablet (4MG) by oral route every 6 hours as needed - Active Immunizations Vaccine Date Status Comments Unknown Results Test Name Date and Time Measure Units Reference Range Abnormal Flag Comments Panel Description: CBC WBC 14:37:00 4.4 K/uL 4.8-10.8 L RBC 14:37:00 4.44 M/uL 4.00-5.20 HGB 14:37:00 12.8 g/dl 12.0-16.0 HCT 14:37:00 38.0 % 37.0-47.0 MCV 14:37:00 85.6 fL 82.0-99.0 MCH 14:37:00 28.8 pg 27.0-32.0 MCHC 14:37:00 33.7 g/dL 32.0-36.0 RDW 14:37:00 12.5 % 11.5-14.5 MPV 14:37:00 11.9 fL 8.8-14.8 Platelet Count 14:37:00 221 K/uL 150-400 Immature Granulocytes 14:37:00 0.0 % 0.0-1.0 Absolute Neutrophils 14:37:00 2.17 THOUS 1.90-7.00 Absolute Lymphocytes 14:37:00 1.75 THOUS 0.80-3.30 Absolute Monocytes 14:37:00 0.43 THOUS 0.30-1.00 Absolute Eosinophils 14:37:00 0.08 THOUS 0.00-0.50 Absolute Basophils 14:37:00 0.01 THOUS 0.00-0.20 Neutrophils 14:37:00 49 % 51-75 L Lymphocytes 14:37:00 39 % 20-46 Monocytes 14:37:00 10 % 4-11 Eosinophils 14:37:00 2 % 0-4 Basophils 14:37:00 0 % 0-2 Testing performed at [facility] [address] [place] [address] Senior Logistics Manager Ten Munroe MD Panel Description: CBC WBC 14:37:00 4.4 K/uL 4.8-10.8 L RBC 14:37:00 4.44 M/uL 4.00-5.20 HGB 14:37:00 12.8 g/dl 12.0-16.0 HCT 14:37:00 38.0 % 37.0-47.0 MCV 14:37:00 85.6 fL 82.0-99.0 MCH 14:37:00 28.8 pg 27.0-32.0 MCHC 14:37:00 33.7 g/dL 32.0-36.0 RDW 14:37:00 12.5 % 11.5-14.5 MPV 14:37:00 11.9 fL 8.8-14.8 Platelet Count 14:37:00 221 K/uL 150-400 Immature Granulocytes 14:37:00 0.0 % 0.0-1.0 Absolute Neutrophils 14:37:00 2.17 THOUS 1.90-7.00 Absolute Lymphocytes 14:37:00 1.75 THOUS 0.80-3.30 Absolute Monocytes 14:37:00 0.43 THOUS 0.30-1.00 Absolute Eosinophils 14:37:00 0.08 THOUS 0.00-0.50 Absolute Basophils 14:37:00 0.01 THOUS 0.00-0.20 Neutrophils 14:37:00 49 % 51-75 L Lymphocytes 14:37:00 39 % 20-46 Monocytes 14:37:00 10 % 4-11 Eosinophils 14:37:00 2 % 0-4 Basophils 14:37:00 0 % 0-2 Testing performed at [facility] [address] [place] [address] Senior Logistics Manager Ten Munroe MD Panel Description: Chemistry Profile Glucose 14:37:00 89 mg/dL 70-99 BUN 14:37:00 11 mg/dL 7-19 Creatinine 14:37:00 0.79 mg/dL 0.57-1.11 Calcium 14:37:00 9.3 mg/dL 8.9-10.5 Sodium 14:37:00 141 mEq/L 135-144 Potassium 14:37:00 3.9 mEq/L 3.5-5.2 Chloride 14:37:00 109 mEq/L 99-111 CO2 14:37:00 24 mEq/L 22-31 Albumin 14:37:00 4.2 g/dL 3.5-5.0 Bilirubin Total 14:37:00 0.6 mg/dL 0.2-1.2 Alkaline Phosphatase 14:37:00 41 U/L 40-150 Protein 14:37:00 6.9 g/dL 6.4-8.3 ALT (SGPT) 14:37:00 10 U/L 0-55 AST (SGOT) 14:37:00 14 U/L 5-34 Anion Gap 14:37:00 8 3-20 Globulin 14:37:00 2.7 g/dL 1.8-4.0 Testing performed at [facility] [address] [facility] [address] Senior Logistics Manager Ten Munroe MD Panel Description: Chemistry Profile Glucose 14:37:00 89 mg/dL 70-99 BUN 14:37:00 11 mg/dL 7-19 Creatinine 14:37:00 0.79 mg/dL 0.57-1.11 Calcium 14:37:00 9.3 mg/dL 8.9-10.5 Sodium 14:37:00 141 mEq/L 135-144 Potassium 14:37:00 3.9 mEq/L 3.5-5.2 Chloride 14:37:00 109 mEq/L 99-111 CO2 14:37:00 24 mEq/L 22-31 Albumin 14:37:00 4.2 g/dL 3.5-5.0 Bilirubin Total 14:37:00 0.6 mg/dL 0.2-1.2 Alkaline Phosphatase 14:37:00 41 U/L 40-150 Protein 14:37:00 6.9 g/dL 6.4-8.3 ALT (SGPT) 14:37:00 10 U/L 0-55 AST (SGOT) 14:37:00 14 U/L 5-34 Anion Gap 14:37:00 8 3-20 Globulin 14:37:00 2.7 g/dL 1.8-4.0 Testing performed at [facility] [place] [address] Senior Logistics Manager Ten Munroe MD Panel Description: EGFR-[facility] eGFR 14:37:00 >60 mL/min >60 Multiply eGFR results by 1.21 for race.Testing performed at [facility] [address] [place] [address] Senior Logistics Manager Ten Munroe MD Panel Description: EGFR-[facility] eGFR 14:37:00 >60 mL/min >60 Multiply eGFR results by 1.21 for race.Testing performed at [facility] [place] [address] Senior Logistics Manager Ten Munroe MD Panel Description: Amylase Amylase 14:37:00 39 U/L 25-125 Testing performed at [facility] [place] [address] Senior Logistics Manager Ten Munroe MD Panel Description: Amylase Amylase 14:37:00 39 U/L 25-125 Testing performed at [facility] [place] [address] Senior Logistics Manager Ten Munroe MD Panel Description: Lipase-[facility] Lipase 14:37:00 27 U/L 8-78 Testing performed at [facility] [place] [address] Senior Logistics Manager Ten Munroe MD Panel Description: Lipase-[facility] Lipase 14:37:00 27 U/L 8-78 Testing performed at [facility] [place] [address] Senior Logistics Manager Ten Munroe MD Panel Description: Urine Culture/Sensitivity-[facility] Urine Culture 14:37:00 Source: Urine Collected: 04/24/13 14:37 Site: Received : 04/24/13 20:08 Order#: [id number] Culture PRELIM 04/25/13 11:16 No growthKEY FOR RESULTS: * - NEW RESULT - RESULT WAS MODIFIED AFTER FINAL STATUS SETPerform at [facility] [address] [place] [address] Senior Logistics Manager Ten Munroe MD Panel Description: Urine Culture/Sensitivity-[facility] Urine Culture 14:37:00 Source: Urine Collected: 04/24/13 14:37 Site: Received : 04/24/13 20:08 Order#: [id number] Culture FINAL 04/26/13 08:23 Staphylococcus species <10,000 cfu/ ml Susceptibility not performedKEY FOR RESULTS: * - NEW RESULT - RESULT WAS MODIFIED AFTER FINAL STATUS SETPerform at [facility] [address] [place], [place] [id number] Senior Logistics Manager Ten Munroe MD Panel Description: Urinalysis with Micro-Reflex Culture & Sens if Ind-AMS Appearance 14:37:00 Clear Color 14:37:00 Yellow Glucose, Urine 14:37:00 Negative Negative Ketones 14:37:00 Trace Negative A Blood 14:37:00 Pos 2+ Negative A Protein 14:37:00 Negative Negative Nitrites 14:37:00 Negative Negative Bilirubin 14:37:00 Positive Negative AA Due to a nation- wide shortage of product, we are currently unable to performan Ictotest to confirm the positive Urine bilirubin result. Specific [place] 14:37:00 1.023 1.003-1.03 pH 14:37:00 5.5 5.0-8.0 Urobilinogen 14:37:00 1.0 mg/dL <1.0 Leukocyte Esterase 14:37:00 Pos 1+ Negative A RBC, Urine 14:37:00 0-2 /HPF 0-2 WBC, Urine 14:37:00 5-10 /HPF 0-4 A Epithelial Cells 14:37:00 5-10 /HPF Bacteria 14:37:00 Occasional A Urine Mucus 14:37:00 Present Microscop. Exam Perf. 14:37:00 performed Testing performed at [facility] [address] [place] [address] Senior Logistics Manager Ten Munroe MD Panel Description: Urinalysis with Micro-Reflex Culture & Sens if Ind-AMS Appearance 14:37:00 Clear Color 14:37:00 Yellow Glucose, Urine 14:37:00 Negative Negative Ketones 14:37:00 Trace Negative A Blood 14:37:00 Pos 2+ Negative A Protein 14:37:00 Negative Negative Nitrites 14:37:00 Negative Negative Bilirubin 14:37:00 Positive Negative AA Due to a nation- wide shortage of product, we are currently unable to performan Ictotest to confirm the positive Urine bilirubin result. Specific [place] 14:37:00 1.023 1.003-1.03 pH 14:37:00 5.5 5.0-8.0 Urobilinogen 14:37:00 1.0 mg/dL <1.0 Leukocyte Esterase 14:37:00 Pos 1+ Negative A RBC, Urine 14:37:00 0-2 /HPF 0-2 WBC, Urine 14:37:00 5-10 /HPF 0-4 A Epithelial Cells 14:37:00 5-10 /HPF Bacteria 14:37:00 Occasional A Urine Mucus 14:37:00 Present Microscop. Exam Perf. 14:37:00 performed Testing performed at [facility] [address] [place] [address] Senior Logistics Manager Ten Munroe MD Panel Description: Culture If Indicated With Sensitivity-AMS Urine Culture Reflexed? 14:37:00 YES Testing performed at [facility] [address] [place] [address] Senior Logistics Manager Ten Munroe MD Panel Description: Culture If Indicated With Sensitivity-AMS Urine Culture Reflexed? 14:37:00 YES Testing performed at [facility] [address] [place] [id number] Senior Logistics Manager Ten Munroe MD Vital Signs Date / Time: Height Weight Pulse Rate Blood Pressure Temperature /13:49:00 160.00 lbs 64 /min 104/72 mm[Hg] 97.9 F Procedures Procedure Date Unknown Encounters Encounter Location Date Patient Visit [facility] Patient Visit [facility] Advance Directives Directive Effective Date Unknown
--- OUTSIDE RECORDS SUMMARY | 2016-08-18 19:09 | XMS REPORT | Referral Summary ---
Author Author [facility] Organization [facility] Address Unknown Phone Unavailable Care Team Providers Care Business Liaison Officer Name Role Phone Hayes Beverly Primary Care Physician [phone] Encounter VC Date(s): 10/07/14 - 10/07/14 [facility] [address] [place] [address] [facility] Discharge Diagnosis: Strep pharyngitis Discharge Disposition: 01-Home or Self Care Attending Physician: Brii Huggins Attending Physician: Provider, Immediate Care Admitting Physician: Provider, Immediate Care Vital Signs Most recent to 1 oldest [Reference Range]: Temperature Oral 37.9 degC [35.8-37.3 degC] *HI* (10/07/14 12:02 PM) Peripheral Pulse 112 bpm Rate [60-100 bpm] *HI* (10/07/14 12:02 PM) Blood Pressure 131/80 mmHg [90-140/60-90 mmHg] (10/07/14 12:02 PM) SpO2 99 % (10/07/14 12:02 PM) Problem List Condition Effective Dates Status [...] Daily, # 30 tabs, 5 Refill(s), Pharmacy: [facility] [id number], 1 tabs Oral Daily Start Date: 03/11/15 Status: Ordered ProAir HFA 90 mcg/inh inhalation aerosol 2 puffs, Inhalation, QID, as needed for wheezing, # 18 g, 11 Refill(s), Pharmacy : [facility] [id number] Start Date: 06/13/14 Status: Ordered Provera 10 mg oral tablet See Instructions, 1 tabs Oral Daily, for the first 14 days of each BCP pack., # 14 Each, 2 Refill(s), Pharmacy: [facility] [id number], 1 tabs Oral Daily, for the first 14 days of each BCP pack. Start Date: 03/11/15 Status: Ordered Tri-Sprintec oral tablet 1 tabs, Oral, Daily, # 28 tabs, 11 Refill(s), Pharmacy: [facility] [id number] Start Date: 11/07/14 Status: Ordered ZyrTEC 5 [...] Extracted from: Title: Office Visit Note Author: Brii Huggins Date: 10/07/14 Assessment/Plan 1.Strep pharyngitis Zpack prescribed. Push fluids and get plenty of rest. Take Tylenol and/or Motrin for fever/pain. F/U with PCP if symptoms persist/ worsen. Ordered: Office Visit Level 4 Est 56874 Orders: azithromycin, See Instructions, Take 2 tablets po now, then 1 tablet po daily x4 days., # 6 tabs, 0 Refill(s), Pharmacy: [facility] [id number], Take 2 tablets po now, then 1 tablet po daily x4 days.
--- OUTSIDE RECORDS SUMMARY | 2016-08-18 19:09 | XMS REPORT | Referral Summary ---
Author Author [facility] Organization [facility] Address Unknown Phone Unavailable Care Team Providers Care Carrot Buncher Name Role Phone Hayes Beverly Primary Care Physician [phone] Encounter Date(s): 11/07/14 - 11/07/14 [facility] [address] [address]- [place] Discharge Diagnosis: Irregular menses Discharge Diagnosis: Vulvovaginal condyloma Discharge Disposition: 01-Home or Self Care Attending Physician: Alannah Maria MD Admitting Physician: Alannah Maria MD Referring Physician: Alannah Maria MD Vital Signs Most recent to 1 oldest [Reference Range]: Blood Pressure 114/72 mmHg [90-140/60-90 mmHg] (11/07/14 8:05 AM) Problem List Condition Effective Dates Status [...] Daily, # 30 tabs, 5 Refill(s), Pharmacy: [facility] [id number], 1 tabs Oral Daily Start Date: 03/11/15 Status: Ordered ProAir HFA 90 mcg/inh inhalation aerosol 2 puffs, Inhalation, QID, as needed for wheezing, # 18 g, 11 Refill(s), Pharmacy : [facility] [id number] Start Date: 06/13/14 Status: Ordered Provera 10 mg oral tablet See Instructions, 1 tabs Oral Daily, for the first 14 days of each BCP pack., # 14 Each, 2 Refill(s), Pharmacy: [facility] [id number], 1 tabs Oral Daily, for the first 14 days of each BCP pack. Start Date: 03/11/15 Status: Ordered Tri-Sprintec oral tablet 1 tabs, Oral, Daily, # 28 tabs, 11 Refill(s), Pharmacy: [facility] [id number] Start Date: 11/07/14 Status: Ordered ZyrTEC 5 [...] smoker Assessment and Plan Extracted from: Title: Supervisor Garage F/U; Irregluar menses Author: Alannah Maria MD Date: Assessment/Plan Irregular menses Options were discussed today for controlling her irregular bleeding. We discussed medical management such as progestin withdrawal, ocps, or even Depo Provera or Mirena. She is somewhat interested in Mirena, but decided to start with ocps. Tri-Sprintec was sent to her pharmacy Ordered: Office Visit Level 4 Est 67763 Vulvovaginal condyloma Much improved, I offered reassurance to Aly about the moles. She is to call for any further problems. Ordered: Office Visit Level 4 Est 51153 Orders: norgestimate-ethinyl estradiol, 1 tabs, Oral, Daily, # 28 tabs, 11 Refill(s), Pharmacy: [facility] [id number]
--- OUTSIDE RECORDS SUMMARY | 2016-08-18 19:09 | XMS REPORT | Referral Summary ---
Author Author [facility] Organization [facility] Address Unknown Phone Unavailable Care Team Providers Care Interior Design Professional Name Role Phone Hayes Beverly Primary Care Physician [phone] Encounter VC Date(s): 07/11/15 - 07/11/15 [facility] [address] [place], [place] [address] Discharge Diagnosis: Acquired hallux valgus of right foot Discharge Disposition: 01-Home or Self Care Attending Physician: Segundo Tovar DPM Admitting Physician: Segundo Tovar DPM Vital Signs Most recent to 1 oldest [Reference Range]: Temperature Temporal 36.5 degC Artery [36.3-37.8 (07/11/15 10:33 AM) degC] Peripheral Pulse 65 bpm Rate [60-100 bpm] (07/11/15 10:33 AM) Respiratory Rate 16 br/min [14-20 br/min] (07/11/15 10:33 AM) Blood Pressure 129/83 mmHg [90-140/60-90 mmHg] (07/11/15 10:33 AM) SpO2 97 % (07/11/15 10:33 AM) Problem List Condition Effective Dates Status [...] Refill(s), Supply Start Date: 05/28/15 Status: Ordered [place] 7.5 mg-325 mg oral tablet 1 tabs, Oral, q6hr, as needed for pain, # 50 tabs, 0 Refill(s) Start Date: 07/11/15 Status: Ordered ProAir HFA 90 mcg/inh inhalation aerosol 2 puffs, Inhalation, QID, as needed for wheezing, # 18 g, 11 Refill(s), Pharmacy : [facility] [id number] Start Date: 06/13/14 Status: Ordered Provera 10 mg oral tablet See Instructions, 1 TABS ORAL DAILY, FOR THE FIRST 14 DAYS OF EACH BCP PACK., # 14 Each, 1 Refill(s), Pharmacy: [facility] [id number], 1 TABS ORAL DAILY, FOR THE FIRST 14 DAYS OF EACH BCP PACK. Start Date: 07/02/15 Status: Ordered Tri-Sprintec oral tablet 1 tabs, Oral, Daily, # 28 tabs, 11 Refill(s), Pharmacy: [facility] [id number] Start Date: 11/07/14 Status: Ordered Wellbutrin SR 100 mg/12 hours oral tablet, extended release 100 mg 1 tabs, Oral, BID, take once a day for 3-7 days then inc to BID, # 60 tabs, 1 Refill(s), Pharmacy: [facility] [id number], 1 tabs Oral BID,Instr: take once a day for 3-7 days then inc to BID Start Date: 07/02/15 Status: Ordered Zofran ODT 4 mg oral tablet, disintegrating 4 mg 1 tabs, Oral, q8hr, as needed for nausea/vomiting, # 30 tabs, 0 Refill(s), Pharmacy: [facility] [id number], 1 tabs Oral q8hr,PRN:as needed for nausea/ vomiting Start Date: 07/11/15 Status: Ordered ZyrTEC 5 mg, Oral, Daily, as needed for allergy symptoms, 0 Refill(s) Start Date: 06/13/14 Status: Ordered Results Chemistry Most recent to 1 oldest [Reference Range]: U Beta hCG Ql Neg (07/11/15 10:43 AM) Immunizations Vaccine Date Refusal Reason hepatitis B [...] Extracted from: Title: Ambulatory Patient Education Author: Connie Obando RN Date: Outpatient Surgery Guidelines -Keep dressing intact to the operative foot until your first post operative appointment. -NON Weight bearing as tolerated in post op shoe. -May remove post operative shoe while icing the operative site or sleeping. -Ice the operative site for 10 to 15 minutes every 1 to 2 hours next 5 to 7 days. -Elevate the operative foot above the heart. Call the number below If fever is over 102.0 Next dose of pain medicine may be given at _ If any problems occur or if you have any further questions, please contact your physician. In an emergency, call [phone] ([phone]), if you cannot reach your physician. If you find that you cannot contact your physician, but feel that your signs and symptoms warrant a physicians attention, go to an Emergency room which is the closest to you. Do NOT drive or operate hazardous machinery for 24 hours or while taking pain medication. Do not sign any important documents or make important decisions for 24 hours following surgery. When taking pain medicine, be careful as you walk or climb stairs as dizziness is not unusual. Check temperature every four hours during the day for two days. Follow Up With: Where: When: Segundo Tovar [address] [place] [address] Business (1) 07/22/2015 08:00:00 Comments: Appointment Scheduled
--- OUTSIDE RECORDS SUMMARY | 2016-08-18 19:10 | XMS REPORT | Referral Summary ---
Author Author [facility] Organization [facility] Address Unknown Phone Unavailable Care Team Providers Care Kayaking Instructor Name Role Phone Hayes Beverly Primary Care Physician [phone] Encounter Date(s): 05/11/16 - 05/11/16 [facility], [address] [place] [address] Discharge Diagnosis: Acne vulgaris Discharge Diagnosis: Folliculitis Discharge Disposition: 01-Home or Self Care Attending Physician: Chapin Beverly MD Admitting Physician: Chapin Beverly MD Vital Signs Most recent to 1 oldest [Reference Range]: Temperature Tympanic 37.3 degC [36.6-38.1 degC] (05/11/16 2:16 PM) Peripheral Pulse 76 bpm Rate [60-100 bpm] (05/11/16 2:16 PM) Blood Pressure 114/72 mmHg [90-140/60-90 mmHg] (05/11/16 2:16 PM) Problem List Condition Effective Dates Status Health Status Informant Acute Resolved bronchitis(Confirmed ) Acute Resolved gastroenteritis(Conf irmed) Dehydration(Confirme Resolved d) History of Active anemia(Confirmed) Liver Active mass(Confirmed) Asthma(Confirmed) Resolved (Confirmed) 06/16/03 - 2004 Resolved (Confirmed) 06/15/09 - 2010 Resolved (Confirmed) 06/15/06 - 2007 Resolved Abdominal pain, Active RUQ(Confirmed) Abnormal abdominal Active ultrasound(Confirmed ) Allergies, Adverse Reactions, Alerts Substance Reaction Severity Status Neosporin Active penicillin rash all over Active sulfa drugs Active sulfanilamide topical Active Medications albuterol 1.25 mg/3 mL (0.042%) inhalation solution 3 mL, NEB, QID, as needed for cough and wheezing, 0 Refill(s) Start Date: 06/13/14 Status: Ordered Digna 24 Hour Allergy 180 mg, Oral, Daily, as needed for allergies, 0 Refill(s) Start Date: 01/21/16 Status: Ordered Flonase 50 mcg/inh nasal spray 1 sprays, Nasal, qAM, 0 Refill(s) Start Date: 01/21/16 Status: Ordered minocycline 100 mg oral capsule See Instructions, 1 caps BID X 10 days, then 1 daily ., # 30 caps, 5 Refill(s), Pharmacy: [facility] [id number], 1 caps BID X 10 days, then 1 daily . Start Date: 05/11/16 Status: Ordered mupirocin 2% topical ointment 1 carey, Topical, TID, # 22 g, 5 Refill(s), Pharmacy: [facility] [id number] Start Date: 05/11/16 Stop Date: 05/24/16 Status: Ordered naproxen 500 mg oral tablet 500 mg 1 tabs, Oral, Daily, as needed for achiness, # 60 tabs, 0 Refill(s), Pharmacy: [facility] [id number], 1 tabs Oral BID Start Date: 08/09/15 Status: Ordered Sudafed PE 2 tabs, Oral, TID, as needed for sinus congestion, 0 Refill(s) Start Date: 01/21/16 Status: Ordered Symbicort 160 mcg-4.5 mcg/inh inhalation aerosol 2 puffs, Inhalation, BID, # 10.2 g, 11 Refill(s), Pharmacy: [facility] [id number] Start Date: 01/21/16 Status: Ordered Ventolin HFA 90 mcg/inh inhalation aerosol 2 puffs, Inhalation, q4hr, as needed for wheezing, # 8 g, 0 Refill(s) Start Date: 01/21/16 Status: Ordered Wellbutrin SR 100 mg/12 hours oral tablet, extended release 100 mg 1 tabs, Oral, BID, # 60 tabs, 1 Refill(s), Pharmacy: [facility] [id number], 1 tabs Oral BID Start Date: 02/28/16 Status: Ordered Results No data available for this section Immunizations Given and Recorded Vaccine Date Status Refusal Reason tetanus/diphth/pertuss (Tdap) adult/adol 04/18/10 Recorded hepatitis B pediatric vaccine 04/30/98 Recorded hepatitis B pediatric vaccine 02/06/98 Recorded hepatitis B pediatric vaccine 10/17/97 Recorded measles/mumps/rubella virus vaccine 07/09/89 Recorded measles/mumps/rubella virus vaccine 01/02/85 Recorded pneumococcal 23-polyvalent vaccine 06/16/04 Recorded tetanus-diphth toxoids (Td) adult/adol 10/17/97 Recorded Procedures Procedure Date Related Diagnosis Body Site Correction, hallux valgus (bunion), with or 07/11/15 without sesamoidectomy; by double osteotomy Bunionectomy 2000 Surgical removal of wisdom tooth 1999 Bunionectomy 1DOS 07/11/15 GP 90 days 10/10/15 R foot Social History Social History Type Response Smoking Status Never smoker Assessment and Plan Extracted from: Title: Ambulatory Patient Education Author: Chapin Beverly MD Date: 05/11 Family Medicine Acne Acne is a skin problem that causes pimples. Acne occurs when the pores in your skin get blocked. Your pores may become red, sore, and swollen (inflamed), or infected with a common skin bacterium (Propionibacterium acnes). Acne is a common skin problem. Up to 80% of people get acne at some time. Acne is especially common from the ages of 12 to 24. Acne usually goes away over time with proper treatment. CAUSES Your pores each contain an oil gland. The oil glands make an oily substance called sebum. Acne happens when these glands get plugged with sebum, skin cells, and dirt. The P. acnes bacteria that are normally found in the oil glands then multiply, causing inflammation. Acne is commonly triggered by changes in your hormones. These hormonal changes can cause the oil glands to get bigger and to make more sebum. Factors that can make acne worse include: Hormone changes during adolescence. Hormone changes during women's menstrual cycles. Hormone changes during . Oil-based cosmetics and hair products. Harshly scrubbing the skin. Strong soaps. Stress. Hormone problems due to certain diseases. Long or oily hair rubbing against the skin. Certain medicines. Pressure from headbands, backpacks, or shoulder pads. Exposure to certain oils and chemicals. SYMPTOMS Acne often occurs on the face, neck, chest, and upper back. Symptoms include: Small, red bumps (pimples or papules). Whiteheads (closed comedones). Blackheads (open comedones). Small, pus-filled pimples (pustules). Big, red pimples or pustules that feel tender. More severe acne can cause: An infected area that contains a collection of pus (abscess). Hard, painful, fluid-filled sacs (cysts). Scars. DIAGNOSIS Your caregiver can usually tell what the problem is by doing a physical exam. TREATMENT There are many good treatments for acne. Some are available over the counter and some are available with a prescription. The treatment that is best for you depends on the type of acne you have and how severe it is. It may take 2 months of treatment before your acne gets better. Common treatments include: Creams and lotions that prevent oil glands from clogging. Creams and lotions that treat or prevent infections and inflammation. Antibiotics applied to the skin or taken as a pill. Pills that decrease sebum production. control pills. Light or laser treatments. Minor surgery. Injections of medicine into the affected areas. Chemicals that cause peeling of the skin. HOME CARE INSTRUCTIONS Good skin care is the most important part of treatment. Wash your skin gently at least twice a day and after exercise. Always wash your skin before bed. Use mild soap. After each wash, apply a water-based skin moisturizer. Keep your hair clean and off of your face. Shampoo your hair daily. Only take medicines as directed by your caregiver. Use a sunscreen or sunblock with SPF 30 or greater. This is especially important when you are using acne medicines. Choose cosmetics that are noncomedogenic. This means they do not plug the oil glands. Avoid leaning your chin or forehead on your hands. Avoid wearing tight headbands or hats. Avoid picking or squeezing your pimples. This can make your acne worse and cause scarring. SEEK MEDICAL CARE IF: Your acne is not better after 8 weeks. Your acne gets worse. You have a large area of skin that is red or tender. This information is not intended to replace advice given to you by your health care provider. Make sure you discuss any questions you have with your health care provider. Document Released: 03/05/2001 Document Revised: 03/29/2015 Document Reviewed: [employer] Patient Education 2016 [employer] Folliculitis Folliculitis is redness, soreness, and swelling (inflammation) of the hair follicles. This condition can occur anywhere on the body. People with weakened immune systems, diabetes, or obesity have a greater risk of getting folliculitis. CAUSES Bacterial infection. This is the most common cause. Fungal infection. Viral infection. Contact with certain chemicals, especially oils and tars. Long-term folliculitis can result from bacteria that live in the nostrils. The bacteria may trigger multiple outbreaks of folliculitis over time. SYMPTOMS Folliculitis most commonly occurs on the scalp, thighs, legs, back, buttocks, and areas where hair is shaved frequently. An early sign of folliculitis is a small, white or yellow, pus-filled, itchy lesion (pustule). These lesions appear on a red, inflamed follicle. They are usually less than 0.2 inches (5 mm ) wide. When there is an infection of the follicle that goes deeper, it becomes a boil or furuncle. A group of closely packed boils creates a larger lesion ( carbuncle). Carbuncles tend to occur in hairy, sweaty areas of the body. DIAGNOSIS Your caregiver can usually tell what is wrong by doing a physical exam. A sample may be taken from one of the lesions and tested in a lab. This can help determine what is causing your folliculitis. TREATMENT Treatment may include: Applying warm compresses to the affected areas. Taking antibiotic medicines orally or applying them to the skin. Draining the lesions if they contain a large amount of pus or fluid. Laser hair removal for cases of long-lasting folliculitis. This helps to prevent regrowth of the hair. HOME CARE INSTRUCTIONS Apply warm compresses to the affected areas as directed by your caregiver. If antibiotics are prescribed, take them as directed. Finish them even if you start to feel better. You may take biht-gwh-[id number] medicines to relieve itching. Do not shave irritated skin. Follow up with your caregiver as directed. SEEK IMMEDIATE MEDICAL CARE IF: You have increasing redness, swelling, or pain in the affected area. You have a fever. MAKE SURE YOU: Understand these instructions. Will watch your condition. Will get help right away if you are not doing well or get worse. This information is not intended to replace advice given to you by your health care provider. Make sure you discuss any questions you have with your health care provider. Document Released: 05/17/2002 Document Revised: 03/29/2015 Document Reviewed: [employer] Patient Education 2016 [employer] No follow up information was provided. Extracted from: Title: cellulitis, acne Author: Chapin Beverly MD Date: 05/11/16 Impression and Plan Diagnosis Folliculitis (GDS19-JY L08.9, Discharge, Medical). Acne vulgaris (MWK34-DS L70.0, Discharge, Medical). Plan: 1) take the Minocycline as directed. 2) Use the Mupirocin ointment topically to all of your acne and right forearm infections. 3) use a tiny bit of Mupirocin ointment to the nares TID X 10 days. 4) Recheck in 3 weeks, and as needed.. Orders Orders (Selected) Outpatient Orders Ordered Office Visit Level 3 Est 11462: Prescriptions Prescribed minocycline 100 mg oral capsule: See Instructions, 1 caps BID X 10 days, then 1 daily ., 30 caps, 5 Refill(s) mupirocin 2% topical ointment: 1 carey, Topical, TID, 22 g, 5 Refill(s). Dx/Order Association Plan: Diagnosis: Acne vulgaris Comment: Ordered: Office Visit Level 3 Est 62931; 05/11/16 16:24:00 GAS MAIN FITTER HELPER, Folliculitis | Acne vulgaris Diagnosis: Folliculitis Comment: Ordered: Office Visit Level 3 Est 70878; 05/11/16 16:24:00 GAS MAIN FITTER HELPER, Folliculitis | Acne vulgaris Additional Orders: Comment: Ordered: minocycline 100 mg oral capsule,See Instructions, 1 caps BID X 10 days, then 1 daily ., # 30 caps, 5 Refill(s), Pharmacy: [facility] [id number], 1 caps BID X 10 days, then 1 daily . Ordered: mupirocin 2% topical ointment,1 carey, Topical, TID, # 22 g , 5 Refill(s), Pharmacy: [facility] [id number] End of Orders ."
--- OUTSIDE RECORDS SUMMARY | 2016-08-18 19:10 | XMS REPORT | Referral Summary ---
Author Author [facility] Organization [facility] Address Unknown Phone Unavailable Care Team Providers Care Rectification Printer Name Role Phone Hayes Beverly Primary Care Physician [phone] Encounter VC Date(s): 01/21/16 - 01/21/16 [facility], [address] [place] [address] Discharge Diagnosis: Acute bronchitis Discharge Diagnosis: Asthma Discharge Diagnosis: Acute maxillary sinusitis Discharge Disposition: 01-Home or Self Care Attending Physician: Chapin Beverly MD Admitting Physician: Chapin Beverly MD Vital Signs Most recent to 1 oldest [Reference Range]: Temperature Tympanic 37.0 degC [36.6-38.1 degC] (01/21/16 7:42 AM) Peripheral Pulse 76 bpm Rate [60-100 bpm] (01/21/16 7:42 AM) Respiratory Rate 24 br/min [14-20 br/min] *HI* (01/21/16 7:42 AM) Blood Pressure 116/82 mmHg [90-140/60-90 mmHg] (01/21/16 7:42 AM) Problem List Condition Effective Dates Status [...] 0 Refill(s) Start Date: 01/21/16 Status: Ordered azithromycin 250 mg oral tablet See Instructions, Take 2 tabs today, then 1 tab daily for 4 days., # 6 tabs, 0 Refill(s), Pharmacy: [facility] [id number], Take 2 tabs today, then 1 tab daily for 4 days. Start Date: 01/21/16 Stop Date: 01/26/16 Status: Ordered Flonase sprays, Nasal, Daily, 0 Refill(s) Start Date: 10/07/14 Status: Ordered Flonase 50 mcg/inh nasal spray 1 sprays, Nasal, qAM, 0 Refill(s) Start Date: 01/21/16 Status: Ordered naproxen 500 mg oral tablet 500 mg 1 tabs, Oral, Daily, as needed for achiness, # 60 tabs, 0 Refill(s), Pharmacy: [facility] [id number], 1 tabs Oral BID Start Date: 08/09/15 Status: Ordered predniSONE 20 mg oral tablet See Instructions, Take 2 tabs daily for 4 days, then 1 tab daily for 4 days., # 12 tabs, 0 Refill(s), Pharmacy: [facility] [id number], Take 2 tabs daily for 4 days, then 1 tab daily for 4 days. Start Date: 01/21/16 Stop Date: 01/29/16 Status: Ordered ProAir HFA 90 mcg/inh inhalation aerosol 2 puffs, Inhalation, QID, as needed for wheezing, # 18 g, 11 Refill(s), Pharmacy : [facility] [id number] Start Date: 06/13/14 Status: Ordered Sudafed PE 2 tabs, Oral, TID, as needed for sinus congestion, 0 Refill(s) Start Date: 01/21/16 Status: Ordered Symbicort 160 mcg-4.5 mcg/inh inhalation aerosol 2 puffs, Inhalation, BID, as needed for asthma, # 6 g, 0 Refill(s) Start Date: 01/21/16 Status: Ordered Symbicort 160 mcg-4.5 mcg/inh inhalation aerosol 2 puffs, Inhalation, BID, # 10.2 g, 11 Refill(s), Pharmacy: [facility] [id number] Start Date: 01/21/16 Status: Ordered TriNessa oral tablet See Instructions, TAKE 1 TABLET BY MOUTH EVERY DAY, # 28 tabs, eRx: [id number], TAKE 1 TABLET BY MOUTH EVERY DAY Start Date: 11/26/15 Status: Ordered Ventolin HFA 90 mcg/inh inhalation aerosol 2 puffs, Inhalation, q4hr, as needed for wheezing, # 8 g, 0 Refill(s) Start Date: 01/21/16 Status: Ordered Wellbutrin SR 100 mg/12 hours oral tablet, extended release 100 mg 1 tabs, Oral, BID, # 60 tabs, 1 Refill(s), Pharmacy: [facility] [id number], 1 tabs Oral BID,Instr:take once a day for 3-7 days then inc to BID Start Date: 07/02/15 Status: Ordered Results No data available for [...] Patient Education Author: Chapin Beverly MD Date: 01/20 Emergency Medicine Acute Bronchitis Bronchitis is inflammation of the airways that extend from the windpipe into the lungs (bronchi). The inflammation often causes mucus to develop. This leads to a cough, which is the most common symptom of bronchitis. In acute bronchitis, the condition usually develops suddenly and goes away over time, usually in a couple weeks. Smoking, allergies, and asthma can make bronchitis worse. Repeated episodes of bronchitis may cause further lung problems. CAUSES Acute bronchitis is most often caused by the same virus that causes a cold. The virus can spread from person to person (contagious) through coughing, sneezing, and touching contaminated objects. SIGNS AND SYMPTOMS Cough. Fever. Coughing up mucus. Body aches. Chest congestion. Chills. Shortness of breath. Sore throat. DIAGNOSIS Acute bronchitis is usually diagnosed through a physical exam. Your health care provider will also ask you questions about your medical history. Tests, such as chest X-rays, are sometimes done to rule out other conditions. TREATMENT Acute bronchitis usually goes away in a couple weeks. Oftentimes, no medical treatment is necessary. Medicines are sometimes given for relief of fever or cough. Antibiotic medicines are usually not needed but may be prescribed in certain situations. In some cases, an inhaler may be recommended to help reduce shortness of breath and control the cough. A cool mist vaporizer may also be used to help thin bronchial secretions and make it easier to clear the chest. HOME CARE INSTRUCTIONS Get plenty of rest. Drink enough fluids to keep your urine clear or pale yellow (unless you have a medical condition that requires fluid restriction). Increasing fluids may help thin your respiratory secretions (sputum) and reduce chest congestion, and it will prevent dehydration. Take medicines only as directed by your health care provider. If you were prescribed an antibiotic medicine, finish it all even if you start to feel better. Avoid smoking and secondhand smoke. Exposure to cigarette smoke or irritating chemicals will make bronchitis worse. If you are a smoker, consider using nicotine gum or skin patches to help control withdrawal symptoms. Quitting smoking will help your lungs heal faster. Reduce the chances of another bout of acute bronchitis by washing your hands frequently, avoiding people with cold symptoms, and trying not to touch your hands to your mouth, nose, or eyes. Keep all follow-up visits as directed by your health care provider. SEEK MEDICAL CARE IF: Your symptoms do not improve after 1 week of treatment. SEEK IMMEDIATE MEDICAL CARE IF: You develop an increased fever or chills. You have chest pain. You have severe shortness of breath. You have bloody sputum. You develop dehydration. You faint or repeatedly feel like you are going to pass out. You develop repeated vomiting. You develop a severe headache. MAKE SURE YOU: Understand these instructions. Will watch your condition. Will get help right away if you are not doing well or get worse. This information is not intended to replace advice given to you by your health care provider. Make sure you discuss any questions you have with your health care provider. Document Released: 04/15/2005 Document Revised: 03/29/2015 Document Reviewed: [employer] Patient Education 2016 [employer] No follow up information was provided. Extracted from: Title: multiple problems Author: Chapin Beverly MD Date: 01/21/16 Impression and Plan Diagnosis Acute bronchitis (HFG80-MP J20.9, Discharge, Medical). Acute maxillary sinusitis (RVG63-WH J01.00, Discharge, Medical). Asthma (EQQ50-CD J45.20, Discharge, Medical). Plan: 1) Take the Azithromycin and Prednisone as directed. 2) Use the Symbicort as directed. 3) Rest at home for 3 days. 4) Followup as needed.. Orders Orders (Selected) Outpatient Orders Ordered Office Visit Level 4 Est 87102: Prescriptions Prescribed Symbicort 160 mcg-4.5 mcg/inh inhalation aerosol: 2 puffs, Inhalation, BID, 10.2 g, 11 Refill(s) azithromycin 250 mg oral tablet: See Instructions, Take 2 tabs today, then 1 tab daily for 4 days., 6 tabs, 0 Refill(s) predniSONE 20 mg oral tablet: See Instructions, Take 2 tabs daily for 4 days, then 1 tab daily for 4 days., 12 tabs, 0 Refill(s). Dx/Order Association Plan: Diagnosis: Acute bronchitis Comment: Ordered: Office Visit Level 4 Est 89056; 01/21/16 17:55:00 CDT, Asthma | Acute bronchitis | Acute maxillary sinusitis Diagnosis: Acute maxillary sinusitis Comment: Ordered: Office Visit Level 4 Est 98959; 01/21/16 17:55:00 CDT, Asthma | Acute bronchitis | Acute maxillary sinusitis Diagnosis: Asthma Comment: Ordered: Office Visit Level 4 Est 02638; 01/21/16 17:55:00 CDT, Asthma | Acute bronchitis | Acute maxillary sinusitis Additional Orders: Comment: Ordered: Digna 24 Hour Allergy,180 mg, Oral, Daily, as needed for allergies, 0 Refill(s) Ordered: Flonase 50 mcg/inh nasal spray,1 sprays, Nasal, qAM, 0 Refill(s) Ordered: Sudafed PE,2 tabs, Oral, TID, as needed for sinus congestion, 0 Refill(s) Ordered: Symbicort 160 mcg-4.5 mcg/inh inhalation aerosol,2 puffs, Inhalation, BID, as needed for asthma, # 6 g, 0 Refill(s) Ordered: Symbicort 160 mcg-4.5 mcg/inh inhalation aerosol,2 puffs, Inhalation, BID, # 10.2 g, 11 Refill(s), Pharmacy: [facility] Ordered: Ventolin HFA 90 mcg/inh inhalation aerosol,2 puffs, Inhalation, q4hr, as needed for wheezing, # 8 g, 0 Refill(s) Ordered: azithromycin 250 mg oral tablet,See Instructions, Take 2 tabs today, then 1 tab daily for 4 days., # 6 tabs, 0 Refill(s), Pharmacy: [facility] [id number], Take 2 tabs today, then 1 tab daily for 4 days. Ordered: predniSONE 20 mg oral tablet,See Instructions, Take 2 tabs daily for 4 days, then 1 tab daily for 4 days., # 12 tabs, 0 Refill(s), Pharmacy: [facility] [id number], Take 2 tabs daily for 4 days, then 1 tab daily for 4 days. End of Orders ."
--- OUTSIDE RECORDS SUMMARY | 2016-08-18 19:10 | XMS REPORT | Referral Summary ---
Author Author [facility] Organization [facility] Address Unknown Phone Unavailable Care Team Providers Care Opener Name Role Phone Hayes Beverly Primary Care Physician [phone] Encounter VC Date(s): 08/07/14 - 08/07/14 [facility] [address] [facility] [address] [place], [place] [address] Discharge Diagnosis: Condyloma Discharge Disposition: 01-Home or Self Care Attending Physician: Alannah Maria MD Admitting Physician: Alannah Maria MD Vital Signs Most recent to 1 oldest [Reference Range]: Blood Pressure 146/84 mmHg [90-140/60-90 mmHg] *HI* (08/07/14 3:47 PM) Problem List Condition Effective Dates Status [...] 0 Refill(s) Start Date: 10/07/14 Status: Ordered meloxicam 7.5 mg oral tablet 7.5 mg 1 tabs, Oral, Daily, # 30 tabs, 3 Refill(s), Pharmacy: [facility] [id number], 1 tabs Oral Daily Start Date: 02/05/15 Status: Ordered ProAir HFA 90 mcg/inh inhalation aerosol 2 puffs, Inhalation, QID, as needed for wheezing, # 18 g, 11 Refill(s), Pharmacy : [facility] [id number] Start Date: 06/13/14 Status: Ordered Tri-Sprintec oral tablet 1 tabs, Oral, Daily, # 28 tabs, 11 Refill(s), Pharmacy: [facility] [id number] Start Date: 11/07/14 Status: Ordered ZyrTEC 5 [...] smoker Assessment and Plan Extracted from: Title: Field Marketing Specialist Visit Author: Alannah Maria MD Date: 08/10/14 Assessment/Plan Condyloma I discussed my findings with Aly, as well as my recommendation for treating with Joseph. We did discuss this in detail. I would like to see her back in 3 months. Ordered: Office Visit Level 4 Est 77473 Orders: imiquimod topical, 1 carey, Topical, 3x/Wk, applied directly to wart Wash off after 8 hours, # 24 Each, 1 Refill(s), Pharmacy: [facility] [id number]
--- OUTSIDE RECORDS SUMMARY | 2016-08-18 19:10 | XMS REPORT | Referral Summary ---
Author Author [facility] Organization [facility] Address Unknown Phone Unavailable Care Team Providers Care Interactive Media Marketing Director Name Role Phone Hayes Beverly Primary Care Physician [phone] Encounter Date(s): 07/19/14 - 07/19/14 [facility], [address] [place] [address] Discharge Diagnosis: Vaginal discharge Discharge Diagnosis: [...] # 18 g, 11 Refill(s), Pharmacy : [id number] Start Date: 06/13/14 Status: Ordered Symbicort 160 mcg-4.5 mcg/inh inhalation aerosol 2 puffs, Inhalation, BID, # 10.2 g, 11 Refill(s) Start Date: 06/13/14 Status: Ordered Tri-Sprintec oral tablet 1 tabs, Oral, Daily, # 28 tabs, 11 Refill(s), Pharmacy: [facility] [id number] Start Date: 11/07/14 Status: Ordered ZyrTEC 5 [...] Title: Ambulatory Patient Education Author: Kika Chauhan COMPUTER TECHNOLOGY INSTRUCTOR Date: 07/19/14 Family Medicine Genital Warts Genital [...] cancer are increased with HPV. Inform your inspector multifocal lens about your warts in the event of . This virus can be passed to the baby's respiratory tract. Discuss this with your caregiver. Use a condom during sexual intercourse. Following treatment, the use of condoms will help prevent reinfection. Ask your caregiver about using lmoi-lcp-rrmqiky anti-itch creams. SEEK MEDICAL CARE IF: Your [...] 05/30/2012 Document Reviewed: ExitCare Patient Information 2014 [employer]. No follow up information was provided. Extracted [...] of genital warts I think referral to [facility] for further evaluation and management is needed. [...] complications. Ordered: Biopsy Of Skin, Single Lesion 06971 Office Visit Level 3 Est 29355 2.Vaginal discharge Ordered: Office Visit Level 3 Est 34889 Addendum I reviewed this chart, the patient's medical history, and the by Rush, Resident's/COMPUTER TECHNOLOGY INSTRUCTOR's/PA/RN's/PharmD's documented findings, and concur with the assessment and Chapin Koo plan as above. on 19 July 2014 12:57:17 CDT
--- OUTSIDE RECORDS SUMMARY | 2016-08-18 19:10 | XMS REPORT | Referral Summary ---
Author Author [facility] Organization [facility] Address Unknown Phone Unavailable Care Team Providers Care Hse Specialist Name Role Phone Hayes Beverly Primary Care Physician [phone] Encounter VC Date(s): 02/05/15 - 02/05/15 [facility] [address] [place], [place] [address] Discharge Diagnosis: Capsulitis of left foot Discharge Diagnosis: Acquired hallux valgus of left foot Discharge Diagnosis: Pain in left foot Discharge Disposition: 01-Home or Self Care [...] Daily, # 30 tabs, 3 Refill(s), Pharmacy: [facility] 43665, 1 tabs Oral Daily Start Date: 02/05/15 Status: Ordered ProAir HFA 90 mcg/inh inhalation aerosol 2 puffs, Inhalation, QID, as needed for wheezing, # 18 g, 11 Refill(s), Pharmacy : [facility] [id number] Start Date: 06/13/14 Status: Ordered Tri-Sprintec oral tablet 1 tabs, Oral, Daily, # 28 tabs, 11 Refill(s), Pharmacy: [facility] [id number] Start Date: 11/07/14 Status: Ordered ZyrTEC 5 [...] Extracted from: Title: Ambulatory Patient Education Author: Segundo Tovar DPMavis Date: Family Medicine Bunion (Hallux Valgus) A bony bump (protrusion) on the inside of the foot, at the base of the first toe , is called a bunion (hallux valgus). A bunion causes the first toe to angle toward the other toes. SYMPTOMS A bony bump on the inside of the foot, causing an outward turning of the first toe. It may also overlap the second toe. Thickening of the skin (callus) over the bony bump. Fluid buildup under the callus. Fluid may become red, tender, and swollen ( inflamed) with constant irritation or pressure. Foot pain and stiffness. CAUSES Many causes exist, including: Inherited from your family (genetics). Injury (trauma) forcing the first toe into a position in which it overlaps other toes. Bunions are also associated with wearing shoes that have a narrow toe box ( pointy shoes). RISK INCREASES WITH: Family history of foot abnormalities, especially bunions. Arthritis. Narrow shoes, especially high heels. PREVENTION Wear shoes with a wide toe box. Avoid shoes with high heels. Wear a small pad between the big toe and second toe. Maintain proper conditioning: Foot and ankle flexibility. Muscle strength and endurance. PROGNOSIS With proper treatment, bunions can typically be cured. Occasionally, surgery is required. RELATED COMPLICATIONS Infection of the bunion. Arthritis of the first toe. Risks of surgery, including infection, bleeding, injury to nerves (numb toe ), recurrent bunion, overcorrection (toe points inward), arthritis of the big toe, big toe pointing upward, and bone not healing. TREATMENT Treatment first consists of stopping the activities that aggravate the pain, taking pain medicines, and icing to reduce inflammation and pain. Wear shoes with a wide toe box. Shoes can be modified by a shoe repair person to relieve pressure on the bunion, especially if you cannot find shoes with a wide enough toe box. You may also place a pad with the center cut out in your shoe, to reduce pressure on the bunion. Sometimes, an arch support (orthotic) may reduce pressure on the bunion and alleviate the symptoms. Stretching and strengthening exercises for the muscles of the foot may be useful. You may choose to wear a brace or pad at night to hold the big toe away from the second toe. If non- surgical treatments are not successful, surgery may be needed. Surgery involves removing the overgrown tissue and correcting the position of the first toe, by realigning the bones. Bunion surgery is typically performed on an outpatient basis, meaning you can go home the same day as surgery. The surgery may involve cutting the mid portion of the bone of the first toe, or just cutting and repairing (reconstructing) the ligaments and soft tissues around the first toe. MEDICATION If pain medicine is needed, nonsteroidal anti-inflammatory medicines, such as aspirin and ibuprofen, or other minor pain relievers, such as acetaminophen, are often recommended. Do not take pain medicine for 7 days before surgery. Prescription pain relievers are usually only prescribed after surgery. Use only as directed and only as much as you need. Ointments applied to the skin may be helpful. HEAT AND COLD Cold treatment (icing) relieves pain and reduces inflammation. Cold treatment should be applied for 10 to 15 minutes every 2 to 3 hours for inflammation and pain and immediately after any activity that aggravates your symptoms. Use ice packs or an ice massage. Heat treatment may be used prior to performing the stretching and strengthening activities prescribed by your caregiver, physical therapist, or lead trainer. Use a heat pack or a warm soak. SEEK MEDICAL CARE IF: Symptoms get worse or do not improve in 2 weeks, despite treatment. After surgery, you develop fever, increasing pain, redness, swelling, drainage of fluids, bleeding, or increasing warmth around the surgical area. New, unexplained symptoms develop. (Drugs used in treatment may produce side effects.) Document Released: 03/08/2006 Document Revised: 05/30/2012 Document Reviewed: ExitCare Patient Information 2015 [employer]. This information is not intended to replace advice given to you by your health care provider. Make sure you discuss any questions you have with your health care provider. No follow up information was provided. Extracted from: Title: Office Visit Note Author: Segundo Tovar DPM Date: 02/05/15 Assessment/Plan Acquired hallux valgus of left foot Capsulitis of left foot X-ray of left foot 3 views weight bearing demonstrated mild arthritic changes of first metatarsophalangeal joint and elevated first metatarsal. X-ray images were reviewed with the patient. Recommended arch support with a metatarsal pad from the balance and prescription was given. Meloxicam for pain. Follow-up in 1 month if condition does not improve. Pain in left foot Ordered: XR Foot Complete Left Orders: meloxicam, 7.5 mg 1 tabs, Oral, Daily, # 30 tabs, 3 Refill(s), Pharmacy: [facility] [id number], 1 tabs Oral Daily
--- OUTSIDE RECORDS SUMMARY | 2016-08-18 19:10 | XMS REPORT | Referral Summary ---
Author Author [facility] Organization [facility] Address Unknown Phone Unavailable Care Team Providers Care Space And [employer] Spacelift Name Role Phone Hayes Beverly Primary Care Physician [phone] Encounter VC Date(s): 09/02/15 - 09/02/15 [facility] [address] [place], [place] [address] Discharge Disposition: 01-Home or Self Care Attending Physician: Segundo Tovar DPM Admitting Physician: Segundo Tovar DPM Referring Physician: Segundo Tovar DPM Vital Signs No [...] BID, # 60 tabs, 0 Refill(s), Pharmacy: [facility] [id number], 1 tabs Oral BID Start Date: 08/09/15 Status: Ordered ProAir HFA 90 mcg/inh inhalation aerosol 2 puffs, Inhalation, QID, as needed for wheezing, # 18 g, 11 Refill(s), Pharmacy : [facility] [id number] Start Date: 06/13/14 Status: Ordered Provera 10 mg oral tablet See Instructions, 1 TABS ORAL DAILY, FOR THE FIRST 14 DAYS OF EACH BCP PACK., # 14 Each, 1 Refill(s), Pharmacy: [facility] [id number], 1 TABS ORAL DAILY, FOR THE FIRST 14 DAYS OF EACH BCP PACK. Start Date: 07/02/15 Status: Ordered Tri-Sprintec oral tablet 1 tabs, Oral, Daily, # 28 tabs, 11 Refill(s), Pharmacy: [facility] [address]64 Start Date: 11/07/14 Status: Ordered Wellbutrin SR 100 mg/12 hours oral tablet, extended release 100 mg 1 tabs, Oral, BID, # 60 tabs, 1 Refill(s), Pharmacy: [facility] [id number], 1 tabs Oral BID,Instr:take once a day for 3-7 days then inc to BID Start Date: 07/02/15 Status: Ordered Zofran ODT 4 mg oral tablet, disintegrating 4 mg 1 tabs, Oral, q8hr, as needed for nausea/vomiting, # 30 tabs, 0 Refill(s), Pharmacy: [facility] 98730, 1 tabs Oral q8hr,PRN:as needed for nausea/ vomiting Start Date: 07/11/15 Status: Ordered Zofran ODT 4 mg oral tablet, disintegrating 4 mg 1 tabs, Oral, q6hr, as needed for nausea/vomiting, 0 Refill(s) Start Date: 08/14/15 Status: Ordered ZyrTEC 5 mg, Oral, Daily, [...] Visit Note Author: Segundo Tovar DPM Date: 09/02/15 Assessment/Plan Status post right foot surgery Status post right foot bunionectomy date of surgery 07/11/2015. Postoperative x-ray today demonstrate intact hardware. Osteotomy site is still visible. X-ray images were reviewed the patient. Protective weightbearing in cam walker next 2 weeks and return to work on 09/15. I would like her to wear cam walker first week after she returns to work and she states that she would call HR and let me know. Patient may wear regular shoe around the housewithin the week. Advised patient to take naproxen for swelling. Continue range of motion exercisesoffirst metatarsophalangeal joint. Patient may return to fullexercise activityin 1 month. Follow-up in 2 months. Extracted from: Title: Return to work Author: Linda Thompson LPN Date: 09/02/15 Work/School Excuse To Whom It May Concern: Patient (Aly Palacio) is currently under my medical care and was seen in the office on (09/02/15). May return to (x) work (_) school on (09/16/15). Excused for # of days: (14) May return to: (work) Limitations/Restrictions (None) # of days of restriction (_) Sincerely, Segundo Tovar DPM, [facility] [address] [facility] [place] [address]
--- OUTSIDE RECORDS SUMMARY | 2016-08-18 19:10 | XMS REPORT | Referral Summary ---
Author Author [facility] Organization [facility] Address Unknown Phone Unavailable Care Team Providers Care Door Cutter Name Role Phone Hayes Beverly Primary Care Physician [phone] Encounter VC Date(s): 04/18/15 - 04/18/15 [facility] [address] [place], [place] [address] Discharge Diagnosis: Melanocytic nevus of right lower extremity Discharge Disposition: 01-Home or Self Care Attending Physician: Bi Aguirre MD Admitting Physician: Bi Aguirre MD Referring Physician: Chapin Beverly MD Vital Signs No data available for this [...] Daily, # 30 tabs, 5 Refill(s), Pharmacy: [id number], 1 tabs Oral Daily Start Date: 03/11/15 Status: Ordered ProAir HFA 90 mcg/inh inhalation aerosol 2 puffs, Inhalation, QID, as needed for wheezing, # 18 g, 11 Refill(s), Pharmacy : [id number] Start Date: 06/13/14 Status: Ordered Provera 10 mg oral tablet See Instructions, 1 tabs Oral Daily, for the first 14 days of each BCP pack., # 14 Each, 2 Refill(s), Pharmacy: [facility] [id number], 1 tabs Oral Daily, for the first 14 days of each BCP pack. Start Date: 03/11/15 Status: Ordered Tri-Sprintec oral tablet 1 tabs, Oral, Daily, # 28 tabs, 11 Refill(s), Pharmacy: [id number] Start Date: 11/07/14 Status: Ordered ZyrTEC 5 [...] Procedures Procedure Date Related Diagnosis Body Site Excision, benign lesion including margins, 04/18/15 except skin tag (unless listed elsewhere), trunk, arms or legs; excised diameter 1.1 to 2.0 cm Repair, intermediate, wounds of scalp, 04/18/15 axillae, trunk and/or extremities (excluding hands and feet); 2.6 cm to 7.5 cm Bunionectomy 2000 Surgical removal of wisdom tooth 1999 Social History Social History Type Response Smoking Status Never smoker Assessment and Plan Extracted from: Title: Office Visit Note Author: Bi Aguirre MD Date: 04/18/15 Assessment/Plan 1.Melanocytic nevus of right lower extremity Excised the nevus on the right upper inner thigh that gets irritated with clothing. I excised 1.3 cm of tissue. I did intermediate layered closure with buried 4-0 Vicryl and top 4 -0 Prolene with a final wound repair length of 3.5cm. Suture removal in 10-12 days and follow-up sooner for any problems Options/risks/benefits of the procedure were discussed and explained and consent was obtained. Specifically discussed risks of scarring, abnormal scarring, skin changes such as color or texture changes, recurrence, incomplete removal, bleeding, infection, need for further treatment, and other unexpected risks/outcomes of these types of skin procedures. Final timeout performed. Site(s) for excision were prepared by cleaning and injecting each site with < 5cc of buffered lidocaine with epi 1:100,000. Site was excised with margins with scalpel/scissors/forceps in usual fashion to the level of the subcutaneous fat. Wound edges were undermined. Hemostasis was obtained with hyfrecation as needed. Layered closure was performed with buried absorbable dermal sutures extending to the deeper subcutaneous tissue and top nonabsorbable sutures. Ointment and bandages placed where needed. Wound care instructions given. Ordered: Exc Jared Les Trunk Arm Leg 1.1-2.0cm 39252 Intermediate Repair Wounds; Scalp Trunk Extremities 2.6-7.5cm [id number]
--- OUTSIDE RECORDS SUMMARY | 2016-08-18 19:10 | XMS REPORT | Continuity of Care Document ---
Author Author [facility] Organization [facility] Address Unknown Phone Unavailable Allergies Medications Problems Procedures Results Encounters ACCT No. Visit Date/Time Discharge Status Pt. Type Provider Facility Loc./Unit Complaint [id number] 04/24/2013 13:44:00 04/24/2013 23 :59:59 CLS Outpatient [id number] 04/15/2013 09:10:00 04/15/2013 23 :59:59 CLS Outpatient
--- OUTSIDE RECORDS SUMMARY | 2016-08-18 19:10 | XMS REPORT | Referral Summary ---
Author Organization Unknown Address Unknown Phone Unavailable Care Team Providers Care Milling Supervisor Name Role Phone Hayes Beverly Primary Care Physician [phone] Encounter VC Date(s): 04/10/14 - 04/10/14 [facility] [address] [place], [place] [address] Discharge Diagnosis: Chest congestion Discharge Diagnosis: Strep pharyngitis Discharge Disposition: Home or Self Care Attending Physician: Janis Miller APRN Admitting Physician: Janis Miller APRN Vital Signs Most recent to 1 oldest [Reference Range]: Temperature Oral 37.2 degC [35.8-37.3 degC] (04/10/14 1:49 PM) Peripheral Pulse 78 bpm Rate [60-100 bpm] (04/10/14 1:49 PM) Blood Pressure 128/76 mmHg [90-140/60-90 mmHg] (04/10/14 1:49 PM) Problem List Condition Effective Dates Status Health Status Informant Acute Active gastroenteritis(Conf irmed) Asthma(Confirmed) Resolved Dehydration(Confirme Active d) Liver Active mass(Confirmed) Abdominal pain, Active RUQ(Confirmed) Abnormal abdominal Active ultrasound(Confirmed ) Allergies, Adverse Reactions, Alerts Substance Reaction Severity Status penicillin Active sulfanilamide topical Active Medications Motrin IB 200 mg oral tablet 2 tabs, Oral, q4hr, as needed for fever, # 120 tabs, 0 Refill(s) Start Date: 04/10/14 Status: Ordered Tylenol Regular Strength mg, Oral, q4hr, 0 Refill(s) Start Date: 04/10/14 Status: Ordered Zithromax Z-Patel 250 mg oral tablet 1 packets, Oral, Daily, as directed on package labeling, X 5 days, # 6 tabs, 1 Refill(s), Pharmacy: [id number], 1 packets Oral Daily,x5 days, Instr:as directed on package labeling Special Instructions: as directed on package labeling Start Date: 04/10/14 Stop Date: 04/20/14 Status: Ordered Results No data available for this section Immunizations No data available for this section Procedures No data available for this section Social History Social History Type Response Smoking Status Never smoker Assessment and Plan No data available for this section
--- OUTSIDE RECORDS SUMMARY | 2016-08-18 19:10 | XMS REPORT | Referral Summary ---
Author Author [facility] Organization [facility] Address Unknown Phone Unavailable Care Team Providers Care Sulfur Chloride Operator Name Role Phone Hayes Beverly Primary Care Physician [phone] Encounter VC Date(s): 05/28/15 - 05/28/15 [facility] [address] [place], [place] [address] Discharge Diagnosis: Acquired hallux valgus of right foot Discharge Diagnosis: Pain in right foot Discharge Disposition: 01-Home or Self Care Attending Physician: Segundo Tovar DPM Admitting Physician: Segundo Tovar DPM Referring Physician: Chapin Beverly MD Vital Signs [...] days, # 35 tabs, 0 Refill(s), Pharmacy: [id number], 1 tabs Oral 5x/Day,x7 days Start Date: [...] Daily, # 30 tabs, 5 Refill(s), Pharmacy: [facility] [id number], 1 tabs Oral Daily Start Date: 03/11/15 Status: Ordered Miscellaneous DME DME Item Knee/Leg walker GABRIELLA: 6 weeks Dx: R foot sx Use as directed, See Instructions, # 1 Each, 0 Refill(s), Supply Start Date: 05/28/15 Status: Ordered ProAir HFA 90 mcg/inh inhalation aerosol 2 puffs, Inhalation, QID, as needed for wheezing, # 18 g, 11 Refill(s), Pharmacy : [facility] [id number] Start Date: 06/13/14 Status: Ordered Provera 10 mg oral tablet See Instructions, 1 TABS ORAL DAILY, FOR THE FIRST 14 DAYS OF EACH BCP PACK., # 14 unknown unit, eRx: [facility] [id number], 1 TABS ORAL DAILY, FOR THE FIRST 14 DAYS OF EACH BCP PACK. Start Date: 05/20/15 Status: Ordered Tri-Sprintec oral tablet 1 tabs, Oral, Daily, # 28 tabs, 11 Refill(s), Pharmacy: [facility] [id number] Start Date: 11/07/14 Status: Ordered ZyrTEC 5 [...] Title: Ambulatory Patient Education Author: Segundo Tovar DPM Date: 05/28/15 Family Medicine Bunionectomy A bunionectomy is a surgical procedure to remove a bunion. A bunion is a visible bump of bone on the inside of your foot where your big toe meets the rest of your foot. A bunion can develop when pressure turns this bone (first metatarsal) toward the other toes. Shoes that are too tight are the most common cause of bunions. Bunions can also be caused by diseases, such as arthritis and polio. You may need a bunionectomy if your bunion is very large and painful or it affects your ability to walk. LET YOUR HEALTH CARE PROVIDER KNOW ABOUT: Any allergies you have. All medicines you are taking, including vitamins, herbs, eye drops, creams, and [id number] medicines. Previous problems you or members of your family have had with the use of anesthetics. Any blood disorders you have. Previous surgeries you have had. Medical conditions you have. RISKS AND COMPLICATIONS Generally, this is a safe procedure. However, problems may occur, including: Infection. Pain. Nerve damage. Bleeding or blood clots. Reactions to medicines. Numbness, stiffness, or arthritis in your toe. Foot problems that continue even after the procedure. BEFORE THE PROCEDURE Ask your health care provider about: Changing or stopping your regular medicines. This is especially important if you are taking diabetes medicines or blood thinners. Taking medicines such as aspirin and ibuprofen. These medicines can thin your blood. Do not take these medicines before your procedure if your health care provider instructs you not to. Do not drink alcohol before the procedure as directed by your health care provider. Do not use tobacco products, including cigarettes, chewing tobacco, or electronic cigarettes, before the procedure as directed by your health care provider. If you need help quitting, ask your health care provider. Ask your health care provider what kind of medicine you will be given during your procedure. A bunionectomy may be done using one of these: A medicine that numbs the area (local anesthetic). A medicine that makes you go to sleep (general anesthetic). If you will be given general anesthetic, do not eat or drink anything after midnight on th night before the procedure or as directed by your health care provider. PROCEDURE An IV tube may be inserted into a vein. You will be given local anesthetic or general anesthetic. The surgeon will make a cut (incision) over the enlarged area at the first joint of the big toe. The surgeon will remove the bunion. You may have more than one incision if any of the bones in your big toe need to be moved. A bone itself may need to be cut. Sometimes the tissues around the big toe may also need to be cut then tightened or loosened to reposition the toe. Screws or other hardware may be used to keep your foot in thecorrect position. The incision will be closed with stitches (sutures) and covered with adhesive strips or another type of bandage (dressing). AFTER THE PROCEDURE You may spend some time in a recovery area. Your blood pressure, heart rate, breathing rate, and blood oxygen level will be monitored often until the medicines you were given have worn off. This information is not intended to replace advice given to you by your health care provider. Make sure you discuss any questions you have with your health care provider. Document Released: 02/19/2006 Document Revised: 12/25/2014 Document Reviewed: [facility] Patient Information 2015 [employer] [facility]. No follow up information was provided. Extracted from: Title: Office Visit Note Author: Segundo Tovar DPM Date: 05/28/15 Assessment/Plan Acquired hallux valgus of right foot The patient has tried all conservative treatments up to this point; however, they provided minimal pain relief and the patient would like to proceed with surgical intervention in the form of Modified Morse bunionectomy with first metatarsal osteotomy right foot and Fransisco osteotomy of right halluxunder monitored anesthesia care. We discussed possible complications of the procedure inclusive of but not exclusive to; post operative infection of skin and bone, chronic swelling and continued pain, over or under correction of the deformity, recurrence of the deformity, post-surgical nerve entrapment, painful scar formation, delayed-union , mal-union, non-union of the osteotomy or arthrodesis site, damages to neurovascular structures, failure of internalfixation device, and DVT which can lead to PE and subsequent . Advised patient to discontinue oral contraceptive during immobilization period. The patient will be non weight bearing for four to six weeks post operatively and may allow partial weight bearing to heel thereafter. Prescribed crutches and knee/walker today. All questions are answered to patient's satisfaction. Patient would like to proceed with surgery in June. Pain in right foot X-ray of right foot 3 views weight bearing demonstrated increased intermetatarsal angle of 18, tibial sesamoid position of 4,hallux abductus angle of 39. X-ray images were reviewed with the patient. Ordered: XR Foot Complete Right Orders: Durable Medical Equipment Rx, DME Item Knee/Leg walker GABRIELLA: 6 weeks Dx : R foot sx Use as directed, See Instructions, # 1 Each, 0 Refill(s), Supply Durable Medical Equipment Rx, DME Item GABRIELLA: 6 weeks Dx: R foot sx Use as directed, See Instructions, # 1 Each, 0 Refill(s), Supply
--- NOTE | 2016-08-18 19:22 | ERPDOC ---
Departure Disposition Decision Date: August 18, 2016 Disposition Decision Time: 20:25 Disposition: 01 DISCHARGED HOME, SELF-CARE Impression Impression Impression: Primary Impression: Dehydration Severity: Moderate Condition: Stable Seen By: Mid-level only Referrals: AILVIA MURCIA MD (Family) Patient Instructions: Dehydration (ED) Problems/Meds/Labs Reviewed?: Yes Medications reviewed and manag: Yes Additional Instructions: I do want you to continue to push fluids at home. Take your pain medications as prescribed. Follow up with your surgeon this week if you continue to have any problems at all. Follow up care ordered?: Yes Mental Status: Alert, Oriented HPI - General Medical General Chief Complaint: Post-Surgical Problem Stated Complaint: POSSIBLE DEHYDRATION Time Seen by Provider: 19:12 Source: patient Exam Limitations: no limitations HPI - General Medical Initial Comments She had a tonsillectomy a week ago per Dr Donnelly. Has not followed up with him so far. She has felt like she is drinking fluids well but today has only voided once. She is taking Lortab 7.5 and Oxycontin for the pain at home. Was concerned today as she has been very fatigued and has felt a little disoriented. Is concerned that she is dehydrated. Occurred At: home Onset: Gradual Duration: 1 week Severity: moderate Associated Symptoms: loss of appetite, malaise, DENIES: chest pain, cough, diaphoresis, fever/chills, headaches, nausea/vomiting, rash, seizure, shortness of breath, syncope, weakness Hx of Similar Symptoms: No Allergies: Coded Allergies: Penicillins (Verified Allergy, Mild, RASH, 08/18/16) Sulfa (Sulfonamide Antibiotics) (Verified Adverse Reaction, Mild, 08/18/16) Past History Patient Surgical History wisdom teeth bunionectomy Past Medical History Pt denies signifigant PMH Surgical History General: tonsils Family History Family History: Negative Vaccines Hx Influenza Vaccination: Yes (2014) Hx Pneumococcal Vaccination: Yes (2011) Social History Smoking Status: Never smoker Substance Use Type: does not use Alcohol Intake: none Review of Systems Constitutional Constitutional: DENIES: chills, dizziness, fatigue, fever, weakness ENMT Ears: DENIES: pain Sinuses: DENIES: congestion, rhinorrhea Mouth/Throat: sore throat Cardiovascular Cardiac: DENIES: chest pain, orthopnea Rhythm/Rate: DENIES: irregular beat, palpitations GI Upper Abdomen: nausea, DENIES: pain, vomiting Lower Abdomen: DENIES: constipation, diarrhea, pain Integumentary Skin: DENIES: rash Neurological General: DENIES: headache, numbness, tingling, weakness Physical Exam General General Nourishment: well nourished, well developed, appears stated age, adult , other (mildly acutely ill appearing) General Body Habitus: well groomed Vitals and Pain First Documented Vital Signs Date Time Temp Pulse Resp B/P Pulse Ox O2 Delivery O2 Flow Rate FiO2 08/18/16 19:08 98.7 59 17 128/74 99 Room Air Weight: Kilograms: 67.600 Height (feet): 5 Height (inches): 3.00 Triage Pain Scale: RN VS reviewed by Provider: Yes Normal Exams: Neck: Full range of motion, without adenopathy, JVD, bruits or thyromegaly Chest/Resp: Clear all benjamin, with good airflow, and symmetry bilaterally CV: Regular rate and rhythm, without murmur or gallop, Pulses 2+ all extremities, capillary refill, <2 seconds all ext., no pedal edema noted Abdomen: Bowel sounds positive, soft, non-tender, non-distended, no hepatosplenomegaly, masses or bruits noted Lymphatic: No lymphadenopathy, or lymphedema noted Integumentary: No rashes, hives, or bruising noted Neurologic: Patient is alert, and oriented Psychiatric: Patient exhibits, appropriate attention, emotion and affect ENMT (brief) ENMT Brief: FOUND: TM clear, TM good light reflex, ear canals clear, normal dentition, pharnyx erythema (mild but with white exudate on bilateral tonsillar region that is consistent with healing post tonsillectomy appearance.), NOT FOUND: lesions, mucosa moist, nasal erythema, nasal exudate, nasal swelling, normal tonsils, petechiae, tonsillar deviation Progress Results/Orders Orders Procedure Category Date Status Time Cbc W/Auto LAB 08/18/16 Complete Diff-Reflex Manual Bmp - Basic Metabolic LAB 08/18/16 Complete Panel Iv Lock (Ed Only) EDM 08/18/16 Transmitted 19:18 Normal Saline (Normal PHA 08/18/16 Complete Saline Iv) 19:30 Ondansetron Inj PHA 08/18/16 Complete (Zofran) 19:30 Ketorolac (Toradol) PHA 08/18/16 Complete 19:30 Normal Saline (Normal PHA 08/18/16 Complete Saline Iv) 20:15 Lab Results Laboratory Tests Test 08/18/16 19:35 White Blood Count 6.9T/MM3 Red Blood Count 4.00M/MM3 Hemoglobin 10.7GM/DL Hematocrit 33.9% Mean Corpuscular Volume 84.8UM3 Mean Corpuscular Hemoglobin 26.8UUG Mean Corpuscular Hemoglobin Concent 31.6GM/DL RDW Standard Deviation 40.9FL Platelet Count 275T/MM3 Mean Platelet Volume 10.2UM3 Immature Granulocyte % (Auto) 0.1% Neutrophils (%) (Auto) 65.3% Lymphocytes (%) (Auto) 26.2% Monocytes (%) (Auto) 6.5% Eosinophils (%) (Auto) 1.6% Basophils (%) (Auto) 0.3% Absolute Immature Granulocyte (auto 0.01T/MM3 Absolute Neutrophils (auto) 4.5T/MM3 Absolute Lymphocytes (auto) 1.8T/MM3 Absolute Monocytes (auto) 0.5T/MM3 Absolute Eosinophils (auto) 0.1T/MM3 Absolute Basophils (auto) 0.0T/MM3 Turbidity < 20 Sodium Level 144MEQ/L Potassium Level 3.5MEQ/L Chloride Level 104MEQ/L Carbon Dioxide Level 27MEQ/L Anion Gap 13MEQ/L Blood Urea Nitrogen 11.0MG/DL Creatinine 0.7MG/DL Glomerular Filtration Rate Calc 97 BUN/Creatinine Ratio 16RATIO Glucose Level 99MG/DL Calculated Osmolality 276MOSM/KG Calcium Level 9.0MG/DL Icterus Index < 2 Chemistry Specimen Hemolysis < 15 Medications Current ED Medications Sodium Chloride (Normal Saline IV) 1,000 ml @ 1,000 mls/hr Q1H ONCE IV Last administered on 08/18/16 19:37; Start 08/18/16 at 19:30; Stop 08/18/16 at 20:29 ; Status DC Ondansetron HCl (Zofran) 4 mg O ONCE IV Last administered on 08/18/16 19:38; Start 08/18/16 at 19:30; Stop 08/18/16 at 19:31; Status DC Ketorolac Tromethamine 30 mg 30 mg O ONCE IV Last administered on 08/18/16 19 :41; Start 08/18/16 at 19:30; Stop 08/18/16 at 19:31; Status DC Sodium Chloride (Normal Saline IV) 1,000 ml @ 1,000 mls/hr Q1H ONCE IV Last administered on 08/18/16 20:13; Start 08/18/16 at 20:15; Stop 08/18/16 at 21:11 ; Status DC Progress Progress She is feeling better after 1 liter of IVF. CBC and BMP today are normal. I am going to go ahead and give her a second liter of IVF and let her go home. Will have her follow up with her surgeon this week if she continues to have trouble with fluids. ALEK BEAVER APRN August 18, 2016 19:22
--- OUTSIDE RECORDS SUMMARY | 2016-08-18 19:22 | XMS REPORT | Continuity of Care Document ---
Author Author [facility] Organization [facility] Address Unknown Phone Unavailable Allergies Medications Problems Procedures Results Encounters ACCT No. Visit Date/Time Discharge Status Pt. Type Provider Facility Loc./Unit Complaint [id number] 04/24/2013 13:44:00 04/24/2013 23 :59:59 CLS Outpatient [id number] 04/15/2013 09:10:00 04/15/2013 23 :59:59 CLS Outpatient
[2016-08-18] MEDS ORDERED: OXYC10TA57 PO (19:28)
[2016-08-18] MEDS ORDERED: IBUP-1724 PO (19:28)
[2016-08-18] MEDS ORDERED: NORCO PO (19:28)
[2016-08-18] MEDS ORDERED: ONDA4TAB10 SL (19:28)
[2016-08-18] MEDS ORDERED: ONDANSETRON 4mg/2ml INJECTION IV ONE (19:30)
[2016-08-18] MEDS ORDERED: KETOROLAC 30mg/ml INJECTION IV ONE (19:30)
[2016-08-18] MEDS ORDERED: NORMAL SALINE 1,000 ML IV ONE ×2 (19:30→20:15)
[2016-08-18 19:45] LABS: BASOPHILS % (AUTO) 0.3 % (0-2); EOSINOPHILS # (AUTO) 0.1 T/MM3 (0-0.5); EOSINOPHILS % (AUTO) 1.6 % (0-4); HCT - HEMATOCRIT 33.9 % (36-46); HGB - HEMOGLOBIN 10.7 GM/DL (12-16); IMMATURE GRANULOCYTE # (AUTO) 0.01 T/MM3 (0.00-0.03); IMMATURE GRANULOCYTE % (AUTO) 0.1 % (0.0-0.5); LYMPHOCYTES # (AUTO) 1.8 T/MM3 (1-4.8); LYMPHOCYTES % (AUTO) 26.2 % (23-45); MEAN CORPUSCULAR HGB 26.8 UUG (26-34); MEAN CORPUSCULAR HGB CONC(MCHC 31.6 GM/DL (31-37); MEAN CORPUSCULAR VOLUME 84.8 UM3 (80-100); MEAN PLATELET VOLUME 10.2 UM3 (9.4-12.4); MONOCYTES # (AUTO) 0.5 T/MM3 (0-0.8); MONOCYTES % (AUTO) 6.5 % (0-9.0); NEUTROPHILS #(AUTO)-ABSOLUTE 4.5 T/MM3 (1.8-7.7); NEUTROPHILS % (AUTO) 65.3 % (33-66); WBC - WHITE BLOOD COUNT 6.9 T/MM3 (4.5-11.0)
[2016-08-18 19:52] LABS: ANION GAP 13 MEQ/L (5-15); BUN/CREATININE RATIO 16 RATIO (6-26); CHLORIDE 104 MEQ/L (98-107); CO2 - CARBON DIOXIDE 27 MEQ/L (22-30); CREATININE 0.7 MG/DL (0.7-1.2); GLOMERULAR FILTRATION RATE 97; GLUCOSE 99 MG/DL (65-110); POTASSIUM 3.5 MEQ/L (3.6-5); SODIUM 144 MEQ/L (134-144)
[2016-08-18 21:07] VITALS: BP 106/67; PULSE 56; RESP 17; TEMP 98.7; O2SAT 99
== END 2016-08-18 21:07 | disposition home or self-care (01) ==
LOC: ED 19:05
DX: E86.0 Dehydration (principal)
CPT/HCPCS: 80048; 85025; 96361; 96374; 96375; 99284; J1885; J2405; J7030